=== PATIENT | female | born 1970 | race Caucasian/White ===

== ENCOUNTER 2018-03-16 15:53 | Emergency (ER) | payer OTHER, SELFPAY ==
[2018-03-16] VITALS (8 sets, daily range): BP systolic 146–149; BP diastolic 95–97; PULSE 66–88; RESP 13–16; TEMP 36.8; O2SAT 96–99
--- NOTE | 2018-03-16 16:01 | DI.CT_ITS ---
SYMPTOM/DIAGNOSIS: ALTERED MENTAL STATUS, NON FOCAL, ? SEIZURE NONCONTRAST HEAD CT: No priors. The ventricles and sulci are consistent with the patient's age. No acute intracranial hemorrhage, midline shift or mass effect is identified. The ventricles are intact. The basilar cisterns are patent. There are small fluid levels seen in the maxillary sinuses and sphenoid sinuses bilaterally. This may be seen with acute sinusitis. The mastoid air cells are well pneumatized. The calvarium is intact. IMPRESSION: 1. No acute intracranial process. 2. Small fluid levels seen in the paranasal sinuses. This can be seen with acute sinusitis.
--- NOTE | 2018-03-16 16:07 | W.ED.GENAD ---
Discharge Plan Disposition Patient Disposition: HOME Discharge Details Chief Complaint: AMS/LOC Clinical Impression: Unresponsive episode Primary Care Provider: Candy Felix ED Provider: Frederick Ritchie Home Meds and New Rx's Prescriptions: Continue buspirone 5 mg Tablet 5 mg PO BID RF: 0 escitalopram oxalate [Lexapro] 20 mg Tablet 20 mg PO DAILY AM RF: 0 lorazepam 0.5 mg Tablet 0.5 mg PO RF: 0 diazepam 5 mg Tablet 5 mg PO PRN PRNRF: 0 cyclobenzaprine 10 mg Tablet 10 mg PO TID PRNRF: 0 Discharge Instructions Instructions: Epilepsy (ED) Additional Instructions: Please follow-up with neurology. Call to make an appointment. No driving or operating heavy machinery until cleared to do so by a physician. Please contact your primary care physician to arrange follow-up. Return to the ER for any worsening or new concerning symptoms. Stand Alone Forms: Work Release Referrals: Candy Felix PA [Primary Care Provider] - Iraida Perrin MD [ [facility] STAFF PHYSICIAN] - Medical Decision Making 1617 --patient seen immediately on arrival. Patient is a 47-year-old female here with altered mentation after observed seizure-like activity. No tongue biting or incontinence. Patient seems slow to respond but does not have any focal deficits. When asked if she is feeling anxious and depressed, patient becomes tearful. Suspect patient is currently suffering from anxiety attack. Consider other etiologies include less likely epileptic seizure and now postictal versus central neurologic process. CT reviewed and interpreted by me: Normal sinus rhythm 67 bpm, normal axis, no STEMI, nondiagnostic. Will obtain stat CT head. 17:30 --CT head interpreted by radiology: No acute intracranial abnormality, tiny fluid level in both maxillary sinuses which may be seen with acute sinusitis. Patient reassessed multiple times. She remained stable. She now complains of a sense of heaviness all over her body. I spoke with the patient's who feels patient's symptoms are likely related to her anxiety. I did take a look at her prior medical record listed under a different V number and patient has had 2 episodes of syncope over the past 9 months that were thought to be related to vasovagal episodes. She has had cardiac event monitoring that has been unremarkable. I reviewed and mild hypokalemia noted. Will give oral replacement. 18:30 -- Patient reassessed and significantly improved. Feeling better but still fatigued. Consider seizure. I have instructed patient to not drive or operate any heavy machinery until cleared to do so by her doctor. I recommend that she have outpatient follow-up with neurology this week for further assessment for possible seizure. 19:45 -- Delta trop neg. Patient stable. Improved. HPI General Mode of arrival: EMS. Date/Time Provider Initiated Documentation: 03/16/18 16:01. Limitations to Documentation: altered mental status. Information obtained by: patient and EMS. HPI Narrative: 47-year-old female with history of anxiety presents with EMS with altered mental status. History and review of systems is limited secondary to altered mental status. Per EMS, patient had been complaining of a headache this morning and then just prior to arrival experienced an episode where she locked up and became unresponsive. This episode was witnessed by family who notes concern that she had a seizure - patient was tremoring during episode. No incontinence. Patient does not have a known seizure disorder. She was helped to the floor and did not sustain fall or trauma. EMS notes the patient has been minimally responsive in route to and [facility] with no focal deficits. Patient notes that she has pain all over her body does not localize pain to any one particular area. notes patient was generally not feeling well today and that patient has been stressed at work and had anxiety about calling out from work today. Related Data Home Medications Medication Instructions Recorded Confirmed buspirone 5 mg PO BID 03/16/18 03/16/18 cyclobenzaprine 10 mg PO TID PRN 03/16/18 03/16/18 diazepam 5 mg PO PRN PRN 03/16/18 03/16/18 escitalopram oxalate [Lexapro] 20 mg PO DAILY AM 03/16/18 03/16/18 lorazepam 0.5 mg PO 03/16/18 Allergies Allergy/AdvReac Type Severity Reaction Status Date / Time tetracycline AdvReac Unverified 03/16/18 16:25 General Stated Complaint: AMS/LOC PAULINA: 2 Review of Systems Review of Systems Unobtainable due to mental status [facility] Medical History Anxiety (Chronic) Exam Const General: well developed, acute distress and not in distress Orientation: alert and awake Limitations: altered mental status (minimally responsive to verbal stimuli) HENMT Head: normal to inspection and normocephalic Mouth: moist mucous membranes Throat: posterior oropharynx normal, uvula midline, posterior oropharynx abnormal and no uvular edema Eyes General: appearance normal, both eyes and all related structures Conjunctivae: conjunctivae normal Pupils: PERRL and pupil size bilaterally 4 Neck Neck: trachea midline, supple and no lymphadenopathy noted Resp Effort & Inspection: normal respiratory effort, cough, not labored and no respiratory distress Auscultation: clear to auscultation bilaterally, no rales, no rhonchi and no wheezes Cardio Jugular venous pressure: no JVD Rate: regular rate Rhythm: regular rhythm Heart Sounds: S1 normal, S2 normal, no gallops, no murmurs and no rubs GI Palpation: soft and nontender Skin General skin exam: no rashes or lesions noted and dry skin Other: warm Neuro General: alert, awake and moves all extremities Cranial Nerves: PERRL Speech: other (clear speech, slow to respond) Extrem General: clubbing, cyanosis or edema noted Psych Appearance: grossly normal Speech and Movement: delayed speech Affect: anxious affect Course Vital Signs Temperature 36.8 C 03/16/18 15:57 Pulse 80 03/16/18 15:57 Respiratory Rate 14 03/16/18 15:57 Blood Pressure 149/95 H 03/16/18 15:57 Pulse Oximetry 99 03/16/18 15:57 Temperature 36.8 C 03/16/18 15:57 Pulse 80 03/16/18 15:57 Respiratory Rate 14 03/16/18 15:57 Blood Pressure 149/95 H 03/16/18 15:57 Pulse Oximetry 99 03/16/18 15:57 Oxygen Delivery Method Room Air 03/16/18 15:57 Oxygen Flow Rate 0 03/16/18 15:57
[2018-03-16 16:13] LABS: Abs Immature Grans 0.01 k/cumm (0.0-0.09); Absolute Basophil Count 0.03 k/cumm (0.0-0.2); Absolute Eosinophil Count 0.19 k/cumm (0.0-0.7); Absolute Lymphocyte Count 4.25 k/cumm (1.2-3.4); Absolute Neutrophil Count 4.53 k/cumm (1.2-6.7); Basophils % 0.3; HCT 40.8 % (36.0-46.0); HGB 13.6 g/dL (12.0-15.5); Immature Grans % 0.1; Lymphocytes % 43.8; Mean Corp. HGB Concentration 33.3 g/dL (32.0-36.0); Mean Corpuscular Hemoglobin 30.8 pg (27.0-33.0); Mean Corpuscular Volume 92.5 fL (80-95); Mean Platelet Volume 9.4 fL (8.0-11.0); Monocytes % 7.2; Neutrophils % 46.6; Platelet Count 330 x1000/uL (130-400); RBC 4.41 m/cumm (4.00-5.20); RBC Distribution Width 13.1 % (11.7-14.6); White Blood Cell Count 9.71 k/cumm (4.4-10.8)
--- NOTE | 2018-03-16 16:13 | ED.GENADUL_ITS ---
Discharge Plan Disposition Patient Disposition: HOME Discharge Details Chief Complaint: AMS/LOC Clinical Impression: Unresponsive episode Primary Care Provider: Candy Felix ED Provider: Frederick Ritchie Home Meds and New Rx's Prescriptions: Continue buspirone 5 mg Tablet 5 mg PO BID RF: 0 escitalopram oxalate [Lexapro] 20 mg Tablet 20 mg PO DAILY AM RF: 0 lorazepam 0.5 mg Tablet 0.5 mg PO RF: 0 diazepam 5 mg Tablet 5 mg PO PRN PRNRF: 0 cyclobenzaprine 10 mg Tablet 10 mg PO TID PRNRF: 0 Discharge Instructions Instructions: Epilepsy (ED) Additional Instructions: Please follow-up with neurology. Call to make an appointment. No driving or operating heavy machinery until cleared to do so by a physician. Please contact your primary care physician to arrange follow-up. Return to the ER for any worsening or new concerning symptoms. Stand Alone Forms: Work Release Referrals: Candy Felix PA [Primary Care Provider] - Iraida Perrin MD [ [facility] STAFF PHYSICIAN] - Medical Decision Making 1617 --patient seen immediately on arrival. Patient is a 47-year-old female here with altered mentation after observed seizure-like activity. No tongue biting or incontinence. Patient seems slow to respond but does not have any focal deficits. When asked if she is feeling anxious and depressed, patient becomes tearful. Suspect patient is currently suffering from anxiety attack. Consider other etiologies include less likely epileptic seizure and now postictal versus central neurologic process. CT reviewed and interpreted by me: Normal sinus rhythm 67 bpm, normal axis, no STEMI, nondiagnostic. Will obtain stat CT head. 17:30 --CT head interpreted by radiology: No acute intracranial abnormality, tiny fluid level in both maxillary sinuses which may be seen with acute sinusitis. Patient reassessed multiple times. She remained stable. She now complains of a sense of heaviness all over her body. I spoke with the patient's who feels patient's symptoms are likely related to her anxiety. I did take a look at her prior medical record listed under a different V number and patient has had 2 episodes of syncope over the past 9 months that were thought to be related to vasovagal episodes. She has had cardiac event monitoring that has been unremarkable. I reviewed and mild hypokalemia noted. Will give oral replacement. 18:30 -- Patient reassessed and significantly improved. Feeling better but still fatigued. Consider seizure. I have instructed patient to not drive or operate any heavy machinery until cleared to do so by her doctor. I recommend that she have outpatient follow-up with neurology this week for further assessment for possible seizure. 19:45 -- Delta trop neg. Patient stable. Improved. HPI General Mode of arrival: EMS . Date/Time Provider Initiated Documentation: 03/16/18 16:01 . Limitations to Documentation: altered mental status . Information obtained by: patient and EMS . HPI Narrative: 47-year-old female with history of anxiety presents with EMS with altered mental status. History and review of systems is limited secondary to altered mental status. Per EMS, patient had been complaining of a headache this morning and then just prior to arrival experienced an episode where she locked up and became unresponsive. This episode was witnessed by family who notes concern that she had a seizure - patient was tremoring during episode. No incontinence. Patient does not have a known seizure disorder. She was helped to the floor and did not sustain fall or trauma. EMS notes the patient has been minimally responsive in route to and [facility] with no focal deficits. Patient notes that she has pain all over her body does not localize pain to any one particular area. notes patient was generally not feeling well today and that patient has been stressed at work and had anxiety about calling out from work today. Related Data Home Medications Medication Instructions Recorded Confirmed buspirone 5 mg PO BID 03/16/18 03/16/18 cyclobenzaprine 10 mg PO TID PRN 03/16/18 03/16/18 diazepam 5 mg PO PRN PRN 03/16/18 03/16/18 escitalopram oxalate [Lexapro] 20 mg PO DAILY AM 03/16/18 03/16/18 lorazepam 0.5 mg PO 03/16/18 Allergies Allergy/AdvReac Type Severity Reaction Status Date / Time tetracycline AdvReac Unverified 03/16/18 16:25 General Stated Complaint: AMS/LOC PAULINA: 2 Review of Systems Review of Systems Unobtainable due to mental status [facility] Medical History Anxiety (Chronic) Exam Const General: well developed, acute distress and not in distress Orientation: alert and awake Limitations: altered mental status (minimally responsive to verbal stimuli) HENMT Head: normal to inspection and normocephalic Mouth: moist mucous membranes Throat: posterior oropharynx normal, uvula midline, posterior oropharynx abnormal and no uvular edema Eyes General: appearance normal, both eyes and all related structures Conjunctivae: conjunctivae normal Pupils: PERRL and pupil size bilaterally 4 Neck Neck: trachea midline, supple and no lymphadenopathy noted Resp Effort & Inspection: normal respiratory effort, cough, not labored and no respiratory distress Auscultation: clear to auscultation bilaterally, no rales, no rhonchi and no wheezes Cardio Jugular venous pressure: no JVD Rate: regular rate Rhythm: regular rhythm Heart Sounds: S1 normal, S2 normal, no gallops, no murmurs and no rubs GI Palpation: soft and nontender Skin General skin exam: no rashes or lesions noted and dry skin Other: warm Neuro General: alert, awake and moves all extremities Cranial Nerves: PERRL Speech: other (clear speech, slow to respond) Extrem General: clubbing, cyanosis or edema noted Psych Appearance: grossly normal Speech and Movement: delayed speech Affect: anxious affect Course Vital Signs Temperature 36.8 C 03/16/18 15:57 Pulse 80 03/16/18 15:57 Respiratory Rate 14 03/16/18 15:57 Blood Pressure 149/95 H 03/16/18 15:57 Pulse Oximetry 99 03/16/18 15:57 Temperature 36.8 C 03/16/18 15:57 Pulse 80 03/16/18 15:57 Respiratory Rate 14 03/16/18 15:57 Blood Pressure 149/95 H 03/16/18 15:57 Pulse Oximetry 99 03/16/18 15:57 Oxygen Delivery Method Room Air 03/16/18 15:57 Oxygen Flow Rate 0 03/16/18 15:57
[2018-03-16 16:33] LABS: ALT 19 U/L (12-78); AST 17 U/L (15-37); Albumin 3.8 g/dL (3.4-5.0); Alkaline Phosphatase 88 U/L (46-116); Bilirubin, Direct 0.06 mg/dL (0.00-0.20); Bilirubin, Total 0.3 mg/dL (0.2-1.0); Total Protein 7.9 g/dL (6.4-8.2)
[2018-03-16 16:35] LABS: ALT 19 U/L (12-78); AST 16 U/L (15-37); Albumin 3.8 g/dL (3.4-5.0); Alkaline Phosphatase 92 U/L (46-116); Anion Gap 9.5 mmol/L (3-11); BUN 14 mg/dL (7-18); Bilirubin, Total 0.3 mg/dL (0.2-1.0); CO2 26.5 mmol/L (21.0-32.0); CREATININE 0.79 mg/dL (0.55-1.02); Chloride 105 mmol/L (98-107); Glucose 95 mg/dL (70-100); Potassium 3.2 mmol/L (3.5-5.1); Sodium 141 mmol/L (136-145); Total Protein 7.9 g/dL (6.4-8.2); Troponin I 0.02 ng/mL (0.00-0.06)
[2018-03-16 16:41] LABS: Tricyclic Antidepressants Negative (Negative)
--- NOTE | 2018-03-16 16:48 | DI.VRAD_ITS ---
EXAM: CT Head Without Intravenous Contrast CLINICAL HISTORY: 47 years old, female; Signs and symptoms; Other: Altered, non-focal, question seizure TECHNIQUE: Axial computed tomography images of the head/brain without intravenous contrast. All CT scans at this facility use at least one of these dose optimization techniques: automated exposure control; mA and/or kV adjustment per patient size (includes targeted exams where dose is matched to clinical indication); or iterative reconstruction. Coronal and sagittal reformatted images were created and reviewed. COMPARISON: No relevant prior studies available. FINDINGS: Brain: Unremarkable. No hemorrhage. No significant white matter disease. No edema. Ventricles: Unremarkable. No ventriculomegaly. Bones/joints: Unremarkable. No acute fracture. Soft tissues: Unremarkable. Sinuses: Tiny fluid levels within both maxillary sinuses. Mastoid air cells: Unremarkable as visualized. No mastoid effusion. IMPRESSION: 1. No intracranial abnormality. 2. Tiny fluid levels within both maxillary sinuses which may be seen with acute sinusitis. Dictated and Authenticated by: Fadi Rosario MD. Ordering:ROSANNE ACKERMAN MD
[2018-03-16 16:49] LABS: *AMPHETAMINES SCREEN URINE Negative (Negative); *BARBITURATES SCREEN URINE Negative (Negative); *BENZODIAZEPINES SCREEN URINE Negative (Negative); Cannabinoids THC Negative (Negative); Cocaine Screen,Urine Negative (Negative); METHADONE URINE SCREEN Negative (Negative); OPIATES URINE SCREEN Negative (Negative)
[2018-03-16 19:34] LABS: Troponin I < 0.02 ng/mL (0.00-0.06)
--- NOTE | 2018-03-17 08:54 | PDOC.ERCMPRO ---
Care Management Progress Note 03/17/18-Pt seen on 03/16/[address] Rosie paul for altered mental status. Family feels they witnessed a seizure. F/U Request WILLIAM faxed to Neurology.
== END 2018-03-16 20:09 | disposition home or self-care (01) ==
PROVIDERS: Emergency Provider Student in an Organized Health Care Education/Training Program; PCP Physician Assistant Medical
DX: R41.82 Altered mental status, unspecified (principal); E87.6 Hypokalemia; R51 Headache; F41.9 Anxiety disorder, unspecified
CPT/HCPCS: 36415; 51701; 80048; 80053; 80076; 80307; 93005; 99285; 70450; 83735; 84443; 84484; 85025; 85610; 93010

== ENCOUNTER 2018-04-08 01:50 | Outpatient (CLI) | payer OTHER, SELFPAY ==
--- NOTE | 2018-04-08 16:10 | PDOC.EEG ---
EEG: [facility] Department of Neurology EEG REPORT Date of Recordin04/08/18 Interpreting Physician: Dr. Iraida Perrin PCP/Referring Provider: Doyle Felix NP Reason for study: Ms. Posadas is a 47 year-old woman with a recent spell of unresponsiveness and posturing. Current Medications: ibuprofen 600 mg PO Q6H PRN #20 tab 03/27/17 cyclobenzaprine 10 mg PO TID PRN 03/16/18 diazepam 5 mg PO PRN PRN 03/16/18 lorazepam 0.5 mg PO 03/16/18 buspirone 5 mg tablet 5 mg PO BID 04/02/18 buspirone 7.5 mg tablet 7.5 mg PO TID tab-cap 04/02/18 escitalopram 20 mg tablet 30 mg PO DAILY AM tab 04/02/18 METHODS: A 21 channel digitized electroencephalogram was performed in the [facility] Clinical Neurophysiology Laboratory. The 10/20 international system of electrode placement was used and bipolar and referential electrode montages were recorded. In addition to EEG the patient was monitored for EKG and lateral/vertical eye movements. Activation procedures of photic stimulation and hyperventilation were perfomed if applicable. Video was used during activation procedures and during events where applicable. The duration of the recording was 30 minutes. DESCRIPTION OF EEG: The patient was noted to be awake, drowsy, and asleep during the recording. During maximal wakefulness a 10-Hz posterior background rhythm was present which was well-modulated, symmetrical, reactive to eye opening, and of moderate voltage. With eye opening the background activity changed to a low voltage mixture of alpha, beta, and occasional theta range frequencies. Faster frequencies were present in the bilateral anterior head regions. There was a normal anterior-posterior voltage gradient. During drowsiness, there was attenuation of the posterior dominant background rhythm and vertex waves. Stage II sleep was present with symmetrical sleep spindles, K-complexes, and vertex waves. Activating Procedures: Photic stimulation was performed which produced a symmetrical posterior driving response at various flash frequencies. Hyperventilation was performed with moderate effort and produced no physiological slowing of the background. EKG: EKG revealed normal sinus rhythm. INTERPRETATION: This EEG is normal during the awake and sleep states as well as during photic stimulation and hyperventilation. PRIOR EEG: none CLINICAL CORRELATION: No focal regions of cerebral dysfunction or epileptiform activity was present. Epilepsy remains a clinical diagnosis and a normal EEG does not rule out epilepsy. Clinical correlation is advised. Iraida Perrin MD cc: Doyle Felix NP
== END 2018-04-08 02:10 ==
PROVIDERS: PCP Physician Assistant Medical; Visit Provider Psychiatry & Neurology Neurology
DX: R56.9 Unspecified convulsions (principal); R55 Syncope and collapse; R46.89 Other symptoms and signs involving appearance and behavior; R68.89 Other general symptoms and signs
CPT/HCPCS: 95819

== ENCOUNTER 2018-08-22 09:36 | Emergency (ER) | payer OTHER, SELFPAY ==
[2018-08-22 09:45] VITALS: BP 170/105; PULSE 84; RESP 20; TEMP 37; O2SAT 96
[2018-08-22 09:55] VITALS: RESP 20
--- NOTE | 2018-08-22 10:24 | W.ED.GENAD ---
Discharge Plan Disposition Patient Disposition: HOME Condition: Stable Discharge Details Chief Complaint: Anxiety Clinical Impression: Diarrhea, Anxiety Primary Care Provider: Candy Felix ED Provider: Luca Padgett Home Meds and New Rx's Prescriptions: Continued ibuprofen 600 MG tablet 600 mg PO Q6H PRN (Reason: Pain) Qty: 20 RF: 0 lorazepam 0.5 mg Tablet 0.5 mg PO PRN PRNRF: 0 diazepam 5 mg Tablet 5 mg PO PRN PRNRF: 0 cyclobenzaprine 10 mg Tablet 10 mg PO TID PRNRF: 0 escitalopram oxalate [Lexapro] 20 mg tablet 30 mg PO DAILY AM RF: 0 buspirone 5 mg tablet 5 mg PO BID RF: 0 bupropion HCl [Wellbutrin XL] 300 mg Tablet Extended Release 24 Hr 300 mg PO BID RF: 0 Discharge Instructions Instructions: Acute Diarrhea (ED), Anxiety (ED) Additional Instructions: Please stay well-hydrated and slowly advance your diet as tolerated. Get plenty of rest during illness and return immediately to the emergency department for any further concerns, new or worsening symptoms, fever chills, abdominal pain, nausea vomiting. Follow-up with your primary care provider and counseling services as needed. Stand Alone Forms: Work Release Referrals: Candy Felix PA [Primary Care Provider] - (As needed for reassessment) Medical Decision Making Patient presenting the emergency department for chief complaint of anxiety attack. 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 Patient states that she deals with panic anxiety attacks on a normal basis and does see a counselor for these and is on medication. Patient denies any abdominal pain, fever chills, nausea or vomiting and states only one episode of diarrhea today. Physical exam shows a benign abdomen with hypoactive bowel sounds and otherwise normal examination. Patient is very tearful and anxious about work situation but she denies any homicidal suicidal ideations, states that she [place] has counseling services in place, and states she is mostly concerned about missing work. Given benign abdominal exam no homicidal or suicidal thoughts and otherwise well at appearance without tachycardia, without signs of dehydration, patient not hypotensive patient was offered lab work which she refused at this point. I do feel that this is okay as patient states that she is mostly here her anxiety. Patient was encouraged to return for any new or worsening symptoms. Return precautions thoroughly discussed. Patient encouraged to continue to take her psychiatric medications along with [id number] antidiarrheals as needed. After discussion of diagnosis and plan of care patient has no further needs, questions, or concerns and states clear understanding to return to the emergency department for any worsening symptoms. HPI General Mode of arrival: ambulatory. Date/Time Provider Initiated Documentation: 08/22/18 10:02. Limitations to Documentation: no limitations. Information obtained by: patient, family and RN notes reviewed. History of Present Illness 47 year old F presents to the emergency department with the chief complaint of Diarrhea, anxiety attack., Quality is described as other (Denies pain), Patient started experiencing this day(s) (3) and it has been intermittent. No exacerbating factors reported . Patient did receive the following treatments prior to arrival, none Related Data Home Medications Medication Instructions Recorded Confirmed ibuprofen 600 mg PO Q6H PRN #20 tab 03/27/17 08/22/18 cyclobenzaprine 10 mg PO TID PRN 03/16/18 08/22/18 diazepam 5 mg PO PRN PRN 03/16/18 08/22/18 lorazepam 0.5 mg PO PRN PRN 03/16/18 08/22/18 buspirone 5 mg tablet 5 mg PO BID 04/02/18 08/22/18 escitalopram 20 mg tablet 30 mg PO DAILY AM tab 04/02/18 08/22/18 bupropion HCl [Wellbutrin XL] 300 mg PO BID 08/22/18 08/22/18 Previous Rx's Medication Instructions Recorded ibuprofen 600 mg PO Q6H PRN #20 tab 03/27/17 Allergies Allergy/AdvReac Type Severity Reaction Status Date / Time Penicillins Allergy Intermediate mouth sores Unverified 08/22/18 09:52 tetracycline [Tetracycline] Allergy Mild Skin Rash Unverified 08/22/18 09:52 codeine [Codeine] AdvReac Intermediate Nausea Unverified 08/22/18 09:52 zolpidem tartrate AdvReac Intermediate Mood Unverified 08/22/18 09:52 [From Ambien] General Stated Complaint: Anxiety PAULINA: 3 Review of Systems Constitutional Denies chills, Denies fever(s) and Denies poor appetite Cardiovascular Denies chest pain and Denies dyspnea Respiratory Denies cough and Denies dyspnea Gastrointestinal Reports as per HPI, Denies abdominal pain, Denies melena, Denies change in bowel habits, Denies constipation, Reports diarrhea, Denies nausea and Denies vomiting Genitourinary Denies hematuria, Denies urinary incontinence, Denies urinary hesitancy and Denies urinary urgency Integumentary/Breasts Denies rash Psychiatric Reports anxiety, Reports panic attacks, Denies homicidal ideation and Denies suicidal ideation [facility] Medical History Adrenal nodule (Chronic) Sleep apnea (Chronic 12/24/16) 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) Heart palpitations (Chronic 09/20/16) Depression with anxiety (Chronic 05/15/17) Cerebral palsy, hemiplegic (Chronic 10/01/16) Carpal tunnel syndrome of left wrist (Chronic 10/01/16) BMI 40.0-44.9, adult (Chronic 09/20/16) Abnormal uterine bleeding (Chronic 09/20/16) Ventral hernia (Chronic) Anxiety (Chronic) Anxiety (Resolved 09/20/16) Anxiety and depression (Resolved) BMI 40.0-44.9, adult (Resolved) Cerebral palsy, hemiplegic (Resolved) Heart palpitations (Resolved) Hiatal hernia (Resolved) Surgical History Rotator cuff arthropathy of left shoulder (Chronic) Cholecystectomy Dilation and curettage Endometrial Ablation (~2005) Ligation of fallopian tube Vaginal hysterectomy (12/13/16) Family History Mother Diabetes Asthma Social History number of children: 2 current occupational status: employed current occupation: [employer] Smoking and Tabacco status: Never alcohol intake: current alcohol intake frequency: a few times a month Exam Const General: cooperative Orientation: alert, awake and oriented x3 Resp Effort & Inspection: normal respiratory effort and able to speak in complete sentences Auscultation: clear to auscultation bilaterally Cardio Rate: regular rate Rhythm: regular rhythm Heart Sounds: S1 normal and S2 normal GI Palpation: soft, no hepatosplenomegaly, not firm, no guarding, no masses, no pulsatile masses, not rigid, no splenomegaly and nontender Auscultation: hypoactive bowel sounds Back/Spine/Pelvis Back: no CVA tenderness Neuro General: alert, awake, oriented x3, gait normal and moves all extremities Psych Mood: anxious mood Affect: other (tearfull) Attitude: cooperative Thought Process: normal Thought Content: normal, no homicidality and suicidality Course Vital Signs Temperature 37 C 08/22/18 09:45 Pulse 84 08/22/18 09:45 Respiratory Rate 20 08/22/18 09:45 Blood Pressure 170/105 H 08/22/18 09:45 Pulse Oximetry 96 08/22/18 09:45 Temperature 37 C 08/22/18 09:45 Temperature Source Temporal Artery Scan 08/22/18 09:45 Pulse 84 08/22/18 09:45 Respiratory Rate 20 08/22/18 09:55 Respiratory Effort Non-Labored 08/22/18 09:55 Respiratory Depth Normal 08/22/18 09:55 Respiratory Pattern Normal 08/22/18 09:55 Blood Pressure 170/105 H 08/22/18 09:45 Blood Pressure Position Sitting 08/22/18 09:45 Pulse Oximetry 96 08/22/18 09:45 Pain Level 4 08/22/18 09:45
--- NOTE | 2018-08-22 10:32 | ED.GENADUL_ITS ---
Discharge Plan Disposition Patient Disposition: HOME Condition: Stable Discharge Details Chief Complaint: Anxiety Clinical Impression: Diarrhea, Anxiety Primary Care Provider: Candy Felix ED Provider: Luca Padgett Home Meds and New Rx's Prescriptions: Continued ibuprofen 600 MG tablet 600 mg PO Q6H PRN (Reason: Pain) Qty: 20 RF: 0 lorazepam 0.5 mg Tablet 0.5 mg PO PRN PRNRF: 0 diazepam 5 mg Tablet 5 mg PO PRN PRNRF: 0 cyclobenzaprine 10 mg Tablet 10 mg PO TID PRNRF: 0 escitalopram oxalate [Lexapro] 20 mg tablet 30 mg PO DAILY AM RF: 0 buspirone 5 mg tablet 5 mg PO BID RF: 0 bupropion HCl [Wellbutrin XL] 300 mg Tablet Extended Release 24 Hr 300 mg PO BID RF: 0 Discharge Instructions Instructions: Acute Diarrhea (ED), Anxiety (ED) Additional Instructions: Please stay well-hydrated and slowly advance your diet as tolerated. Get plenty of rest during illness and return immediately to the emergency department for any further concerns, new or worsening symptoms, fever chills, abdominal pain, nausea vomiting. Follow-up with your primary care provider and counseling services as needed. Stand Alone Forms: Work Release Referrals: Candy Felix PA [Primary Care Provider] - (As needed for reassessment) Medical Decision Making Patient presenting the emergency department for chief complaint of anxiety attack. 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 Patient states that she deals with panic anxiety attacks on a normal basis and does see a counselor for these and is on medication. Patient denies any abdominal pain, fever chills, nausea or vomiting and states only one episode of diarrhea today. Physical exam shows a benign abdomen with hypoactive bowel sounds and otherwise normal examination. Patient is very tearful and anxious about work situation but she denies any homicidal suicidal ideations, states that she [place] has counseling services in place, and states she is mostly concerned about missing work. Given benign abdominal exam no homicidal or suicidal thoughts and otherwise well at appearance without tachycardia, without signs of dehydration, patient not hypotensive patient was offered lab work which she refused at this point. I do feel that this is okay as patient states that she is mostly here her anxiety. Patient was encouraged to return for any new or worsening symptoms. Return precautions thoroughly discussed. Patient encouraged to continue to take her psychiatric medications along with [id number] antidiarrheals as needed. After discussion of diagnosis and plan of care patient has no further needs, questions, or concerns and states clear understanding to return to the emergency department for any worsening symptoms. HPI General Mode of arrival: ambulatory . Date/Time Provider Initiated Documentation: 08/22/18 10:02 . Limitations to Documentation: no limitations . Information obtained by: patient, family and RN notes reviewed . History of Present Illness 47 year old F presents to the emergency department with the chief complaint of Diarrhea, anxiety attack., Quality is described as other (Denies pain), Patient started experiencing this day(s) (3) and it has been intermittent. No exacerbating factors reported . Patient did receive the following treatments prior to arrival, none Related Data Home Medications Medication Instructions Recorded Confirmed ibuprofen 600 mg PO Q6H PRN #20 tab 03/27/17 08/22/18 cyclobenzaprine 10 mg PO TID PRN 03/16/18 08/22/18 diazepam 5 mg PO PRN PRN 03/16/18 08/22/18 lorazepam 0.5 mg PO PRN PRN 03/16/18 08/22/18 buspirone 5 mg tablet 5 mg PO BID 04/02/18 08/22/18 escitalopram 20 mg tablet 30 mg PO DAILY AM tab 04/02/18 08/22/18 bupropion HCl [Wellbutrin XL] 300 mg PO BID 08/22/18 08/22/18 Previous Rx's Medication Instructions Recorded ibuprofen 600 mg PO Q6H PRN #20 tab 03/27/17 Allergies Allergy/AdvReac Type Severity Reaction Status Date / Time Penicillins Allergy Intermediate mouth sores Unverified 08/22/18 09:52 tetracycline [Tetracycline] Allergy Mild Skin Rash Unverified 08/22/18 09:52 codeine [Codeine] AdvReac Intermediate Nausea Unverified 08/22/18 09:52 zolpidem tartrate AdvReac Intermediate Mood Unverified 08/22/18 09:52 [From Ambien] General Stated Complaint: Anxiety PAULINA: 3 Review of Systems Constitutional Denies chills, Denies fever(s) and Denies poor appetite Cardiovascular Denies chest pain and Denies dyspnea Respiratory Denies cough and Denies dyspnea Gastrointestinal Reports as per HPI, Denies abdominal pain, Denies melena, Denies change in bowel habits, Denies constipation, Reports diarrhea, Denies nausea and Denies vomiting Genitourinary Denies hematuria, Denies urinary incontinence, Denies urinary hesitancy and Denies urinary urgency Integumentary/Breasts Denies rash Psychiatric Reports anxiety, Reports panic attacks, Denies homicidal ideation and Denies suicidal ideation [facility] Medical History Adrenal nodule (Chronic) Sleep apnea (Chronic 12/24/16) 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) Heart palpitations (Chronic 09/20/16) Depression with anxiety (Chronic 05/15/17) Cerebral palsy, hemiplegic (Chronic 10/01/16) Carpal tunnel syndrome of left wrist (Chronic 10/01/16) BMI 40.0-44.9, adult (Chronic 09/20/16) Abnormal uterine bleeding (Chronic 09/20/16) Ventral hernia (Chronic) Anxiety (Chronic) Anxiety (Resolved 09/20/16) Anxiety and depression (Resolved) BMI 40.0-44.9, adult (Resolved) Cerebral palsy, hemiplegic (Resolved) Heart palpitations (Resolved) Hiatal hernia (Resolved) Surgical History Rotator cuff arthropathy of left shoulder (Chronic) Cholecystectomy Dilation and curettage Endometrial Ablation (~2005) Ligation of fallopian tube Vaginal hysterectomy (12/13/16) Family History Mother Diabetes Asthma Social History number of children: 2 current occupational status: employed current occupation: [employer] Smoking and Tabacco status: Never alcohol intake: current alcohol intake frequency: a few times a month Exam Const General: cooperative Orientation: alert, awake and oriented x3 Resp Effort & Inspection: normal respiratory effort and able to speak in complete sentences Auscultation: clear to auscultation bilaterally Cardio Rate: regular rate Rhythm: regular rhythm Heart Sounds: S1 normal and S2 normal GI Palpation: soft, no hepatosplenomegaly, not firm, no guarding, no masses, no pulsatile masses, not rigid, no splenomegaly and nontender Auscultation: hypoactive bowel sounds Back/Spine/Pelvis Back: no CVA tenderness Neuro General: alert, awake, oriented x3, gait normal and moves all extremities Psych Mood: anxious mood Affect: other (tearfull) Attitude: cooperative Thought Process: normal Thought Content: normal, no homicidality and suicidality Course Vital Signs Temperature 37 C 08/22/18 09:45 Pulse 84 08/22/18 09:45 Respiratory Rate 20 08/22/18 09:45 Blood Pressure 170/105 H 08/22/18 09:45 Pulse Oximetry 96 08/22/18 09:45 Temperature 37 C 08/22/18 09:45 Temperature Source Temporal Artery Scan 08/22/18 09:45 Pulse 84 08/22/18 09:45 Respiratory Rate 20 08/22/18 09:55 Respiratory Effort Non-Labored 08/22/18 09:55 Respiratory Depth Normal 08/22/18 09:55 Respiratory Pattern Normal 08/22/18 09:55 Blood Pressure 170/105 H 08/22/18 09:45 Blood Pressure Position Sitting 08/22/18 09:45 Pulse Oximetry 96 08/22/18 09:45 Pain Level 4 08/22/18 09:45
== END 2018-08-22 10:41 | disposition home or self-care (01) ==
PROVIDERS: Emergency Provider Nurse Practitioner Family; PCP Physician Assistant Medical
DX: R19.7 Diarrhea, unspecified (principal); F41.9 Anxiety disorder, unspecified
CPT/HCPCS: 99282

== ENCOUNTER 2018-09-03 06:19 | Emergency (ER) | payer OTHER, SELFPAY ==
[2018-09-03 06:32] VITALS: BP 161/106; PULSE 84; RESP 20; TEMP 36.3
--- NOTE | 2018-09-03 06:39 | ED.GENADUL_ITS ---
Discharge Plan Disposition Patient Disposition: HOME Condition: Stable Discharge Details Chief Complaint: Headache Clinical Impression: Migraine Primary Care Provider: Candy Felix ED Provider: Brad Amaro Home Meds and New Rx's Prescriptions: No Action ibuprofen 600 MG tablet 600 mg PO Q6H PRN (Reason: Pain) Qty: 20 RF: 0 lorazepam 0.5 mg Tablet 0.5 mg PO PRN PRNRF: 0 diazepam 5 mg Tablet 5 mg PO PRN PRNRF: 0 escitalopram oxalate [Lexapro] 20 mg tablet 30 mg PO DAILY AM RF: 0 buspirone 5 mg tablet 5 mg PO BID RF: 0 bupropion HCl [Wellbutrin XL] 300 mg Tablet Extended Release 24 Hr 300 mg PO BID RF: 0 Discharge Instructions Instructions: Migraine Headache (ED) Medical Decision Making 47 yo female with hx of migraines comes in with head pain simiilar to her prior migraines. She states saturday she saw her pcp for migraines and was given im toradol and felt better. THis morning the pain slowly worsened and so came here. States positive photohpobia and pain throughout the head similar to her prior migraines and not the worst of her life. 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 CN II-xII intact. No findings to suggest caverous sinus thrombis or cereral venous thrombosis. Given not worst of her life and slowly worsened doubt sah. Will tx with toradol and zofran and reassess. pt is feeling much better at this time. She feels well enough to go home, advised f/u with pcp and return precautions given Differential Diagnosis migraine, tension headache HPI General Mode of arrival: ambulatory . Date/Time Provider Initiated Documentation: 09/03/18 06:22 . Limitations to Documentation: no limitations . Information obtained by: patient . History of Present Illness 47 year old F presents to the emergency department with the chief complaint of head pain, described as severe, with intensity rated at 8. Quality is described as aching, and is localized to the head. Patient reports no radiation. Patient started experiencing this hour(s) (3) and it has been constant. No relieving factors improve symptom(s), No exacerbating factors reported . Patient notes no other symptoms.. Patient did receive the following treatments prior to arrival, none Related Data Home Medications Medication Instructions Recorded Confirmed ibuprofen 600 mg PO Q6H PRN #20 tab 03/27/17 09/03/18 diazepam 5 mg PO PRN PRN 03/16/18 09/03/18 lorazepam 0.5 mg PO PRN PRN 03/16/18 09/03/18 buspirone 5 mg tablet 5 mg PO BID 04/02/18 09/03/18 escitalopram 20 mg tablet 30 mg PO DAILY AM tab 04/02/18 09/03/18 bupropion HCl [Wellbutrin XL] 300 mg PO BID 08/22/18 09/03/18 Previous Rx's Medication Instructions Recorded ibuprofen 600 mg PO Q6H PRN #20 tab 03/27/17 Allergies Allergy/AdvReac Type Severity Reaction Status Date / Time Penicillins Allergy Intermediate mouth sores Unverified 09/03/18 06:34 tetracycline [Tetracycline] Allergy Mild Skin Rash Unverified 09/03/18 06:34 codeine [Codeine] AdvReac Intermediate Nausea Unverified 09/03/18 06:34 zolpidem tartrate AdvReac Intermediate Mood Unverified 09/03/18 06:34 [From [place]] General Stated Complaint: Headache PAULINA: 2 Review of Systems Review of Systems All systems reviewed & are unremarkable except as noted in HPI and below Constitutional Denies chills, Denies fever(s) and Denies weakness ENT Denies change in voice Cardiovascular Denies chest pain and Denies dyspnea Respiratory Denies cough and Denies dyspnea Gastrointestinal Denies abdominal pain Genitourinary Denies dysuria Musculoskeletal Denies joint swelling Integumentary/Breasts Denies rash Neurologic Denies weakness [facility] Medical History Adrenal nodule (Chronic) Sleep apnea (Chronic 12/24/16) 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) Heart palpitations (Chronic 09/20/16) Depression with anxiety (Chronic 05/15/17) Cerebral palsy, hemiplegic (Chronic 10/01/16) Carpal tunnel syndrome of left wrist (Chronic 10/01/16) BMI 40.0-44.9, adult (Chronic 09/20/16) Abnormal uterine bleeding (Chronic 09/20/16) Ventral hernia (Chronic) Anxiety (Chronic) Anxiety (Resolved 09/20/16) Anxiety and depression (Resolved) BMI 40.0-44.9, adult (Resolved) Cerebral palsy, hemiplegic (Resolved) Heart palpitations (Resolved) Hiatal hernia (Resolved) Surgical History Rotator cuff arthropathy of left shoulder (Chronic) Cholecystectomy Dilation and curettage Endometrial Ablation (~2005) Ligation of fallopian tube Vaginal hysterectomy (12/13/16) Family History Mother Diabetes Asthma Social History number of children: 2 current occupational status: employed current occupation: [employer] Smoking and Tabacco status: Never alcohol intake: current alcohol intake frequency: a few times a month Exam Const General: no acute distress Orientation: alert HENMT Head: normal to inspection Ears: external ears normal General nose exam: external nose normal Mouth: moist mucous membranes Eyes General: appearance normal, both eyes and all related structures Neck Neck: normal visual inspection Resp Effort & Inspection: normal respiratory effort and able to speak in complete sentences Cardio Rate: regular rate Skin General skin exam: no rashes or lesions noted Neuro General: alert and oriented x3 Extrem General: normal to inspection Psych Mental Status: mental status grossly normal Course Vital Signs Temperature 36.3 C L 09/03/18 06:32 Pulse 84 09/03/18 06:32 Respiratory Rate 20 09/03/18 06:32 Blood Pressure 161/106 H 09/03/18 06:32 Temperature 36.3 C L 09/03/18 06:32 Temperature Source Skin 09/03/18 06:32 Pulse 84 09/03/18 06:32 Respiratory Rate 20 09/03/18 06:32 Blood Pressure 161/106 H 09/03/18 06:32 Blood Pressure Position Sitting 09/03/18 06:32 Pain Level 6 09/03/18 06:32
[2018-09-03] MEDS: Ketorolac 30 MG/ML VIAL IM (06:49)
[2018-09-03] MEDS: Ondansetron O.D.T. 4 MG TABEF PO (06:50)
[2018-09-03 07:50] VITALS: BP 120/59; PULSE 85; RESP 16; TEMP 36.3; O2SAT 96
== END 2018-09-03 07:53 | disposition home or self-care (01) ==
PROVIDERS: Emergency Provider Emergency Medicine; PCP Physician Assistant Medical
DX: G43.909 Migraine, unspecified, not intractable, without status migrainosus (principal)
CPT/HCPCS: 99283; J1885

== ENCOUNTER 2018-09-16 11:11 | Emergency (ER) | payer OTHER, SELFPAY ==
[2018-09-16 11:17] VITALS: BP 117/86; PULSE 86; RESP 18; TEMP 36.5; O2SAT 97
--- NOTE | 2018-09-16 11:48 | ED.GENADUL_ITS ---
Discharge Plan Disposition Patient Disposition: HOME Condition: Good Discharge Details Chief Complaint: Nk/Back Pain Clinical Impression: Muscle spasm of back, Plantar fasciitis of right foot Primary Care Provider: Candy Felix ED Provider: Jony Mcpherson Meds and New Rx's Prescriptions: New lidocaine [Lidoderm] 5 % Adhesive Patch,Medicated 1 patch topical DIRECTED Qty: 5 RF: 0 Continued ibuprofen 600 MG tablet 600 mg PO Q6H PRN (Reason: Pain) Qty: 20 RF: 0 escitalopram oxalate [Lexapro] 20 mg tablet 30 mg PO DAILY AM RF: 0 buspirone 5 mg tablet 5 mg PO BID RF: 0 bupropion HCl [Wellbutrin XL] 300 mg Tablet Extended Release 24 Hr 300 mg PO BID RF: 0 cyclobenzaprine 10 mg Tablet 10 mg PO TID PRNRF: 0 Discharge Instructions Instructions: Plantar Fasciitis Exercises (GEN), Plantar Fasciitis (ED), Muscle Spasm (ED) Additional Instructions: Continue ibuprofen and cyclobenzaprine for your back spasm. Use the Lidoderm patch as directed. Use arch support, ice, exercises for the plantar fasciitis. Follow-up with your primary care next week. Return to ED for chest pain, shortness of breath, fever, urinary symptoms, other concerns. Stand Alone Forms: Work Release Referrals: Candy Felix PA [Primary Care Provider] - Medical Decision Making Patient with musculoskeletal back pain which she has had previously. Did not respond to Flexeril and could not get into primary care so came here. There is no new injuries or trauma. There are no urinary or GI complaints. There is no shortness of breath or cough. She has tenderness in the left lateral lumbar region. Will apply Lidoderm patch to this and have her continue ibuprofen and Flexeril. In regards to the foot symptoms and exam is consistent with plantar fasciitis. She is already wearing decent sneakers. Recommend arch support, ice, nonsteroidals. Follow-up with primary care next week. Return to ED for fever, cough, shortness of breath, abdominal pain, urinary symptoms, neurologic symptoms, other concerns. HPI General Mode of arrival: ambulatory . Date/Time Provider Initiated Documentation: 09/16/18 11:43 . Limitations to Documentation: no limitations . Information obtained by: patient . HPI Narrative: Patient presents to ED with 2 separate complaints. She is having left-sided back muscle spasm which she has had previously. She has taken Motrin and Flexeril without significant relief. Her primary care was unable to see her so she came in here. She denies having urinary symptoms. She denies having chest pain or shortness of breath. She has had this pain previously and usually Flexeril makes it better. She denies any trauma. She denies fever or cough. Second complaint is that of right foot pain in the arch. This is relatively new. There is no trauma. She does have some new sneakers but they are actually well fitting. She has not had this previously. Pain is only in the arch near the heel. Related Data Home Medications Medication Instructions Recorded Confirmed ibuprofen 600 mg PO Q6H PRN #20 tab 03/27/17 09/16/18 buspirone 5 mg tablet 5 mg PO BID 04/02/18 09/16/18 escitalopram 20 mg tablet 30 mg PO DAILY AM tab 04/02/18 09/16/18 bupropion HCl [Wellbutrin XL] 300 mg PO BID 08/22/18 09/16/18 cyclobenzaprine 10 mg PO TID PRN 09/16/18 09/16/18 lidocaine [Lidoderm] 1 patch TOPICAL DIRECTED #5 each 09/16/18 Previous Rx's Medication Instructions Recorded ibuprofen 600 mg PO Q6H PRN #20 tab 03/27/17 lidocaine [Lidoderm] 1 patch TOPICAL DIRECTED #5 each 09/16/18 Allergies Allergy/AdvReac Type Severity Reaction Status Date / Time Penicillins Allergy Intermediate mouth sores Unverified 09/03/18 06:34 tetracycline [Tetracycline] Allergy Mild Skin Rash Unverified 09/03/18 06:34 codeine [Codeine] AdvReac Intermediate Nausea Unverified 09/03/18 06:34 zolpidem tartrate AdvReac Intermediate Mood Unverified 09/03/18 06:34 [From Ambien] General Stated Complaint: Nk/Back Pain PAULINA: 4 Review of Systems Constitutional Denies fever(s) and Denies weakness Cardiovascular Denies chest pain, Denies leg edema and Denies dyspnea Respiratory Denies cough and Denies dyspnea Gastrointestinal Denies abdominal pain, Denies diarrhea, Denies nausea and Denies vomiting Genitourinary Denies hematuria, Denies dysuria and Denies flank pain Musculoskeletal Reports back pain and Denies tingling Comments: Foot pain Integumentary/Breasts Denies rash Neurologic Denies focal weakness, Denies sensory deficit, Denies tingling, Denies paresthesias and Denies weakness FOR[facility], [facility] Medical History Adrenal nodule (Chronic) Sleep apnea (Chronic 12/24/16) 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) Heart palpitations (Chronic 09/20/16) Depression with anxiety (Chronic 05/15/17) Cerebral palsy, hemiplegic (Chronic 10/01/16) Carpal tunnel syndrome of left wrist (Chronic 10/01/16) BMI 40.0-44.9, adult (Chronic 09/20/16) Abnormal uterine bleeding (Chronic 09/20/16) Ventral hernia (Chronic) Anxiety (Chronic) Anxiety (Resolved 09/20/16) Anxiety and depression (Resolved) BMI 40.0-44.9, adult (Resolved) Cerebral palsy, hemiplegic (Resolved) Heart palpitations (Resolved) Hiatal hernia (Resolved) Surgical History Rotator cuff arthropathy of left shoulder (Chronic) Cholecystectomy Dilation and curettage Endometrial Ablation (~2005) Ligation of fallopian tube Vaginal hysterectomy (12/13/16) Social History Smoking/Tobacco Use Status: Never Alcohol Intake: current Alcohol Intake frequency: holidays/special occasions only Drug use: Never Substance use type: does not use Number of Children: 2 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 Do you feel safe at home: Yes Do you feel safe in your relationship?: Yes Exam Const General: cooperative and no acute distress Orientation: alert and oriented x3 Resp Effort & Inspection: normal respiratory effort Auscultation: clear to auscultation bilaterally Back/Spine/Pelvis Cervical Spine: cervical ROM normal Thoracic/Lumbar Spine: thoraco-lumbar ROM limited, No thoracic spinal tendern ess, No lumbar spinal tenderness and other (Tenderness in the left lateral upper lumbar region.) Skin Rashes: no rashes Neuro General: alert, oriented x3, no focal motor deficits and CN's II-XI intact bilaterally Sensory Exam: no sensory deficits noted Extrem General: normal exam except as noted Right lower extremity: foot Details: normal to inspection and tenderness Location: of the plantar foot (arch into heal) Course Vital Signs Temperature 97.7 F 09/16/18 11:17 Pulse 86 09/16/18 11:17 Respiratory Rate 18 09/16/18 11:17 Blood Pressure 117/86 09/16/18 11:17 Pulse Oximetry 97 09/16/18 11:17 Temperature 97.7 F 09/16/18 11:17 Temperature Source Temporal Artery Scan 09/16/18 11:17 Pulse 86 09/16/18 11:17 Respiratory Rate 18 09/16/18 11:17 Respiratory Effort Non-Labored 09/16/18 11:19 Blood Pressure 117/86 09/16/18 11:17 Blood Pressure Position Sitting 09/16/18 11:17 Pulse Oximetry 97 09/16/18 11:17 Pain Level 4 09/16/18 11:17
== END 2018-09-16 12:16 | disposition home or self-care (01) ==
PROVIDERS: Emergency Provider Emergency Medicine; PCP Physician Assistant Medical
DX: M62.830 Muscle spasm of back (principal); M72.2 Plantar fascial fibromatosis
CPT/HCPCS: 99283

== ENCOUNTER 2018-10-24 07:02 | Outpatient (CLI) | payer OTHER, SELFPAY ==
[2018-10-24 08:16] LABS: Anion Gap 7.7 mmol/L (3-11); BUN 19 mg/dL (7-18); CO2 28.3 mmol/L (21.0-32.0); CREATININE 0.75 mg/dL (0.55-1.02); Calcium 9.5 mg/dL (8.5-10.1); Chloride 105 mmol/L (98-107); Glucose 92 mg/dL (70-100); Potassium 4.1 mmol/L (3.5-5.1); Sodium 141 mmol/L (136-145); TSH (W/Ref FT4) 3.09 uIU/mL (0.358-3.74)
[2018-10-27 12:17] LABS: FSH 4.8 mIU/ml; LH 4.4 mIU/ml
== END 2018-10-24 07:22 ==
PROVIDERS: PCP Physician Assistant Medical; Visit Provider Family Medicine
DX: F41.8 Other specified anxiety disorders (principal); N95.9 Unspecified menopausal and perimenopausal disorder
CPT/HCPCS: 36415; 80048; 83001; 83002; 84443

== ENCOUNTER 2019-03-10 06:10 | Emergency (ER) | payer OTHER, SELFPAY ==
[2019-03-10 06:12] VITALS: BP 132/84; PULSE 86; RESP 16; TEMP 36.6; O2SAT 97
--- NOTE | 2019-03-10 06:21 | ED.GENADUL_ITS ---
Discharge Plan Disposition Patient Disposition: HOME Condition: Good Discharge Details Chief Complaint: Allergic Clinical Impression: Allergic reaction caused by a drug Primary Care Provider: Candy Felix ED Provider: Jony Mcpherson [place] Meds and New Rx's Prescriptions: New prednisone 20 mg tablet 40 mg PO DAILY Qty: 8 RF: 0 diphenhydramine HCl [Benadryl Allergy] 25 mg tablet 25 mg PO Q6H PRN (Reason: itching) Qty: 20 RF: 0 famotidine [Pepcid AC] 20 mg tablet 20 mg PO BID Qty: 14 RF: 0 Continued ibuprofen 600 MG tablet 600 mg PO Q6H PRN (Reason: Pain) Qty: 20 RF: 0 escitalopram oxalate [Lexapro] 20 mg tablet 30 mg PO DAILY AM RF: 0 buspirone 5 mg tablet 5 mg PO BID RF: 0 bupropion HCl [Wellbutrin XL] 300 mg Tablet Extended Release 24 Hr 300 mg PO BID RF: 0 lidocaine [Lidoderm] 5 % Adhesive Patch,Medicated 1 patch topical DIRECTED Qty: 5 RF: 0 Discharge Instructions Instructions: General Allergic Reaction (ED) Additional Instructions: Take prednisone daily as directed. May take Benadryl as needed for itching. Pepcid twice a day as directed. Avoid any penicillin derivative medications in the future. It would be okay to try cephalosporins in the future. Follow up with PCP next week if not better. Return to ED for throat swelling, difficulty breathing, other concerns. Stand Alone Forms: Work Release Referrals: Candy Felix PA [Primary Care Provider] - Medical Decision Making Patient with generalized pruritic rash likely related to amoxicillin. No other new exposures. Will start prednisone. Benadryl as needed for pruritus. Pepcid twice a day. Follow-up with primary care next week if not better. Return to ED for any throat or tongue swelling, difficulty breathing, other concerns. HPI General Mode of arrival: ambulatory . Date/Time Provider Initiated Documentation: 03/10/19 06:20 . Limitations to Documentation: no limitations . Information obtained by: patient . HPI Narrative: Patient presents to ED with rash. Started yesterday. Is fairly generalized and very pruritic at this point. She just finished a 2-week course of amoxicillin. She reports allergy to penicillin. She denies any throat or tongue swelling, difficulty breathing, GI symptoms. Related Data Home Medications Medication Instructions Recorded Confirmed ibuprofen 600 mg PO Q6H PRN #20 tab 03/27/17 03/10/19 buspirone 5 mg tablet 5 mg PO BID 04/02/18 03/10/19 escitalopram oxalate 20 mg tablet 30 mg PO DAILY AM tab 04/02/18 03/10/19 bupropion HCl [Wellbutrin XL] 300 mg PO BID 08/22/18 03/10/19 lidocaine [Lidoderm] 1 patch TOPICAL DIRECTED #5 each 09/16/18 03/10/19 diphenhydramine HCl [Benadryl 25 mg PO Q6H PRN #20 tab 03/10/19 Allergy] famotidine [Pepcid AC] 20 mg PO BID #14 tab 03/10/19 prednisone 40 mg PO DAILY #8 tab 03/10/19 Previous Rx's Medication Instructions Recorded ibuprofen 600 mg PO Q6H PRN #20 tab 03/27/17 lidocaine [Lidoderm] 1 patch TOPICAL DIRECTED #5 each 09/16/18 diphenhydramine HCl [Benadryl 25 mg PO Q6H PRN #20 tab 03/10/19 Allergy] famotidine [Pepcid AC] 20 mg PO BID #14 tab 03/10/19 prednisone 40 mg PO DAILY #8 tab 03/10/19 Allergies Allergy/AdvReac Type Severity Reaction Status Date / Time Penicillins Allergy Intermediate rash Verified 03/10/19 06:29 codeine [Codeine] AdvReac Intermediate Nausea Unverified 03/10/19 06:17 zolpidem tartrate AdvReac Intermediate Mood Unverified 03/10/19 06:17 [From Ambien] tetracycline [Tetracycline] AdvReac Mild thrush Unverified 03/10/19 06:29 General Stated Complaint: Allergic PAULINA: 3 Review of Systems ENT Ears, Nose, Mouth, and Throat: Denies lip swelling, Denies nasal congestion, Denies throat swelling and Denies tongue swelling Cardiovascular Cardiovascular: Denies dyspnea Respiratory Respiratory: Denies dyspnea and Denies wheezing Gastrointestinal Gastrointestinal: Denies diarrhea, Denies nausea and Denies vomiting Integumentary/Breasts Skin/Breast: Reports rash Allergic/Immunologic Allergic/Immunologic: Reports urticaria, Denies lip swelling, Denies throat swelling, Denies tongue swelling and Denies wheezing [facility] Medical History (Updated 03/10/19 @ 06:44 by Jony Mcpherson MD) Abnormal uterine bleeding (Chronic 09/20/16) Nl SHG. Nl EMBx. Continued spotting with Norethindrone. Adrenal nodule (Chronic) Incidental finding at the time of abdominal CT scan. Imaging strongly suggestive of benign adenoma. Anxiety and depression (Resolved) BMI 40.0-44.9, adult (Chronic 09/20/16) Carpal tunnel syndrome of left wrist (Chronic 10/01/16) Cerebral palsy, hemiplegic (Chronic 10/01/16) Depression with anxiety (Chronic 05/15/17) Heart palpitations (Chronic 09/20/16) Neg Holter monitor. Cut back on caffeine, started Propranol. Sx improved. Hiatal hernia (Resolved) Small hernia noted as an incidental finding at the time of abdominal CT scan on 03/12/2017. 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 [facility] Social History Smoking/Tobacco Use Status: Never Alcohol Intake: current Alcohol Intake frequency: holidays/special occasions only Drug use: Never Substance use type: does not use Number of Children: 2 current occupation: [employer] Do you feel safe at home: Yes Do you feel safe in your relationship?: Yes Exam Const General: cooperative and comfortable Nutritional Appearance: obese Orientation: alert and oriented x3 HENMT Head: normocephalic and atraumatic Face and sinus: normal facial exam Mouth: lip normal, tongue normal and oropharynx normal Throat: uvula midline Eyes Conjunctivae: conjunctivae normal Sclera: sclerae normal Resp Effort & Inspection: normal respiratory effort Auscultation: clear to auscultation bilaterally Skin Rashes: rashes noted (generalized trunk/arms/legs; raised pruritic papules) Course Vital Signs Vital signs: Vital Signs Temperature 97.9 F 03/10/19 06:12 Pulse 86 03/10/19 06:12 Respiratory Rate 16 03/10/19 06:12 Blood Pressure 132/84 03/10/19 06:12 Pulse Oximetry 97 03/10/19 06:12 Temperature 97.9 F 03/10/19 06:12 Pulse 86 03/10/19 06:12 Respiratory Rate 16 03/10/19 06:12 Respiratory Effort Non-Labored 03/10/19 06:19 Blood Pressure 132/84 03/10/19 06:12 Pulse Oximetry 97 03/10/19 06:12 Pain Level 0 03/10/19 06:12
[2019-03-10] MEDS: diphenhydrAMINE 25 MG CAP PO (06:34)
[2019-03-10] MEDS: Famotidine 20 MG TAB PO (06:34)
[2019-03-10] MEDS: predniSONE 20 MG TAB 60 MG PO (06:34)
[2019-03-10 06:42] VITALS: BP 132/84; PULSE 86; RESP 16; O2SAT 97
== END 2019-03-10 06:45 | disposition home or self-care (01) ==
PROVIDERS: Emergency Provider Emergency Medicine; PCP Physician Assistant Medical
DX: R21 Rash and other nonspecific skin eruption (principal); T36.0X5A Adverse effect of penicillins, initial encounter
CPT/HCPCS: 99283; J7512

== ENCOUNTER 2019-03-23 08:57 | Emergency (ER) | payer OTHER, SELFPAY ==
[2019-03-23 09:04] VITALS: BP 137/82; PULSE 101; RESP 16; TEMP 37; O2SAT 96
--- NOTE | 2019-03-23 09:53 | ED.GENADUL_ITS ---
Discharge Plan Disposition Patient Disposition: HOME Condition: Stable Discharge Details Chief Complaint: DentalOral Clinical Impression: Pain, dental Primary Care Provider: Candy Felix ED Provider: Linnae Ritchie Home Meds and New Rx's Prescriptions: New clindamycin HCl 150 mg capsule 450 mg PO TID Qty: 90 RF: 0 Continued ibuprofen 600 MG tablet 600 mg PO Q6H PRN (Reason: Pain) Qty: 20 RF: 0 escitalopram oxalate [Lexapro] 20 mg tablet 30 mg PO DAILY AM RF: 0 buspirone 5 mg tablet 5 mg PO BID RF: 0 bupropion HCl [Wellbutrin XL] 300 mg Tablet Extended Release 24 Hr 300 mg PO BID RF: 0 lidocaine [Lidoderm] 5 % Adhesive Patch,Medicated 1 patch topical DIRECTED Qty: 5 RF: 0 Discharge Instructions Instructions: Clindamycin (By mouth), Oxycodone/Acetaminophen (By mouth), Toothache (ED) Additional Instructions: Please return immediately to the emergency department if you develop any new or worsening symptoms or if you become otherwise concerned. It is extremely important that you call as soon as possible to make an appointment to be seen in follow-up for this visit by her primary care doctor, and also that you attend your scheduled appointment next Saturday with your dental surgeon. Please take 1 tablet of the Percocet before bed tonight and tomorrow night as needed for pain. Do not take the second Percocet within 8 hours of the first Percocet. Do not take Percocet within 6 hours of taking any other sedating medication or alcohol, I do not drive/operate machinery/make important decisions while taking Percocet. Referrals: Candy Felix PA [Primary Care Provider] - Discharge Data Discharge Date/Time-TO BE ENTERED AT DEPARTURE: 03/23/19 10:25 Medical Decision Making Rosa Posadas is a 48 y/o woman with h/o anxiety, migraine, BENNY who presented to the emergency department with b/l rear lower dental pain worse on the right for one month, gradually progressive. Now off of abx 2/2 allergic reaction. Pt well and non-toxic appearing on exam. Exam/hx not c/w dental abscess, deep space infection/abscess, impending airway compromise, sepsis, meningitis, other acute emergent life threatening process. Plan for clindamycin. Percocet x2 for take home use for sleep tonight and tomorrow. I had a lengthy discussion with the Pt re: RTED precautions, home care, importance of outot f/u with dental as scheduled and with PCP, and safe opiate use. Pt verbalized understanding of the plan and was amenable. All questions were answered. Pt d/kofi to home with clear plan for outpt f/u. Medical Records Medical records reviewed: Yes I reviewed the patient's medical records. HPI General Mode of arrival: ambulatory . Date/Time Provider Initiated Documentation: 03/23/19 09:23 . Limitations to Documentation: no limitations . Information obtained by: patient, RN notes reviewed and old records reviewed . HPI Narrative: Rosa Posadas is a 48 y/o woman with h/o anxiety, migraine headache, BENNY presenting to the emergency department with dental pain. Pt reports that she her b/l lower rear molars are broken, and she has been having pain in both teeth for past month. Pt was started on amoxicillin but stopped taking this 03/10 2/2 allergic reaction. Pt reports that since stopping abx pain has been increasing and is worse in the right tooth. Pt states that she has appointment scheduled with dentist for next week for tooth extraction. Pt reports that she has no other pain, no facial swelling, no trouble swallowing, no change in voice, no fevers, no vomiting, no diarrhea, no SOB. Has been eating and drinking as usual. Related Data Home Medications Medication Instructions Recorded Confirmed ibuprofen 600 mg PO Q6H PRN #20 tab 03/27/17 03/23/19 buspirone 5 mg tablet 5 mg PO BID 04/02/18 03/23/19 escitalopram oxalate 20 mg tablet 30 mg PO DAILY AM tab 04/02/18 03/23/19 bupropion HCl [Wellbutrin XL] 300 mg PO BID 08/22/18 03/23/19 lidocaine [Lidoderm] 1 patch TOPICAL DIRECTED #5 each 09/16/18 03/23/19 clindamycin HCl 450 mg PO TID #90 cap 03/23/19 Previous Rx's Medication Instructions Recorded ibuprofen 600 mg PO Q6H PRN #20 tab 03/27/17 lidocaine [Lidoderm] 1 patch TOPICAL DIRECTED #5 each 09/16/18 clindamycin HCl 450 mg PO TID #90 cap 03/23/19 Allergies Allergy/AdvReac Type Severity Reaction Status Date / Time amoxicillin Allergy Intermediate Hives Unverified 03/23/19 09:14 Penicillins Allergy Intermediate rash Verified 03/23/19 09:14 codeine [Codeine] AdvReac Intermediate Nausea Unverified 03/23/19 09:14 zolpidem tartrate AdvReac Intermediate Mood Unverified 03/23/19 09:14 [From Ambien] tetracycline [Tetracycline] AdvReac Mild thrush Unverified 03/23/19 09:14 General Stated Complaint: DentalOral PAULINA: 4 Review of Systems Review of Systems Narrative: Constitutional: denies fevers Eyes: denies eye pain ENT: denies facial pain, voice change, sore throat, ear pain, reports dental pain Cardiovascular: denies chest pain Respiratory: denies SOB, cough GI: denies abdominal pain, vomiting : denies flank pain MSK: denies back pain, neck pain, arthralgias, myalgias Skin: denies rash Neuro: denies headaches PFSH Medical History Abnormal uterine bleeding (Chronic 09/20/16) Nl SHG. Nl EMBx. Continued spotting with Norethindrone. Adrenal nodule (Chronic) Incidental finding at the time of abdominal CT scan. Imaging strongly suggestive of benign adenoma. Anxiety and depression (Resolved) BMI 40.0-44.9, adult (Chronic 09/20/16) Carpal tunnel syndrome of left wrist (Chronic 10/01/16) Cerebral palsy, hemiplegic (Chronic 10/01/16) Depression with anxiety (Chronic 05/15/17) Heart palpitations (Chronic 09/20/16) Neg Holter monitor. Cut back on caffeine, started Propranol. Sx improved. Hiatal hernia (Resolved) Small hernia noted as an incidental finding at the time of abdominal CT scan on 03/12/2017. 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 [facility] Social History Smoking/Tobacco Use Status: Never Alcohol Intake: current Alcohol Intake frequency: holidays/special occasions only Drug use: Never Substance use type: does not use Number of Children: 2 current occupation: [employer] Do you feel safe at home: Yes Do you feel safe in your relationship?: Yes Exam Narrative Exam Narrative: Constitutional: well and [id number], pleasant, conversing normally HENT: head atraumatic/normocephalic/normal inspection, mucous membranes moist, dental caries b/l rear lower molars, erythema of gingiva adjacent to right lower molar, no dental abscess or drainage, no tongue elevation, no intraoral lesion or edema, uvula midline, no trismus Eyes: conjunctiva normal, sclera normal, pupils 3mm b/l Neck: no stridor, full painless ROM, trachea midline, no LAD, Resp: normal work of breathing, LCTAB Cardio: normal rate, normal rhythm, no mumur Skin: warm, dry, normal color, no rash Neuro: alert, not altered, grossly non-focal, normal tone Ext: moving all extremities equally Psych: normal mood, normal affect, normal behavior Course Vital Signs Vital signs: Vital Signs Temperature 37 C 03/23/19 09:04 Pulse 101 H 03/23/19 09:04 Respiratory Rate 16 03/23/19 09:04 Blood Pressure 137/82 03/23/19 09:04 Pulse Oximetry 96 03/23/19 09:04 Temperature 37 C 03/23/19 09:04 Temperature Source Skin 03/23/19 09:04 Pulse 101 H 03/23/19 09:04 Respiratory Rate 16 03/23/19 09:04 Respiratory Effort Short of Breath 03/23/19 09:04 Blood Pressure 137/82 03/23/19 09:04 Blood Pressure Position Sitting 03/23/19 09:04 Pulse Oximetry 96 03/23/19 09:04 Oxygen Delivery Method Room Air 03/23/19 09:04 Oxygen Flow Rate 0 03/23/19 09:04 Pain Level 6 03/23/19 09:16
[2019-03-23] MEDS: Clindamycin 150 MG CAP 450 MG PO (10:19)
[2019-03-23] MEDS: oxyCODONE 5 mg/Acetaminophen 325 mg TAB 2 TAB PO (10:20)
== END 2019-03-23 10:25 | disposition home or self-care (01) ==
LOC: ER 10:31
PROVIDERS: Emergency Provider Student in an Organized Health Care Education/Training Program; PCP Physician Assistant Medical
DX: K08.89 Other specified disorders of teeth and supporting structures (principal)
CPT/HCPCS: 99283

== ENCOUNTER 2019-08-12 09:51 | Emergency (ER) | payer OTHER, SELFPAY ==
[2019-08-12 09:56] VITALS: BP 151/94; PULSE 86; RESP 18; TEMP 36.7; O2SAT 98
--- NOTE | 2019-08-12 10:15 | W.ED.GENAD ---
Discharge Plan Disposition Patient Disposition: HOME Condition: Stable Discharge Details Chief Complaint: RespSymp Clinical Impression: Acute viral syndrome Primary Care Provider: Candy Felix ED Provider: Karthik Merritt Home Meds and New Rx's Prescriptions: Continued ibuprofen 600 MG tablet 600 mg PO Q6H PRN (Reason: Pain) Qty: 20 RF: 0 escitalopram oxalate [Lexapro] 20 mg tablet 30 mg PO DAILY AM RF: 0 buspirone 5 mg tablet 5 mg PO BID RF: 0 bupropion HCl [Wellbutrin XL] 300 mg Tablet Extended Release 24 Hr 300 mg PO BID RF: 0 lidocaine [Lidoderm] 5 % Adhesive Patch,Medicated 1 patch topical DIRECTED Qty: 5 RF: 0 Discharge Instructions Instructions: Viral Syndrome (ED) Additional Instructions: Rest. Plenty of fluids to avoid dehydration. [id number] medications as directed for symptomatic control. Please watch for new or worsening symptoms and return to the ER for any concerns. Stand Alone Forms: Work Release Medical Decision Making 48-year-old female presents with 3-day history of viral-like syndrome. She is outside the window for Tamiflu, will not test for the flu. Extremely low suspicion for strep throat or pneumonia, rapid strep and chest x-ray not indicated. Discussed my thought process with patient, she is comfortable with this plan. She feels as though she can likely go back to work tomorrow, I will provide a work note for today and the 2 days prior. We discussed resting, plenty of fluids to avoid dehydration, and treating her symptoms with [id number] medications. She appears well, nontoxic. No additional questions or concerns upon discharge Medical Records Medical records reviewed: Yes I reviewed the patient's medical records. HPI General Mode of arrival: ambulatory. Date/Time Provider Initiated Documentation: 08/12/19 09:53. Limitations to Documentation: no limitations. Information obtained by: patient. HPI Narrative: 48-year-old female presents to the ER today reporting 3-day history of general malaise, nasal congestion, headaches, cough, sore throat, and myalgias. She took Mucinex last night which did help with her cough but she prefers not to take it because it makes her sleepy. She has not taken any other medications. She reports that her whole family has similar symptoms, 2 of them have been evaluated and both tested negative for the flu. She denies any documented fever. She reports that she was unable to go to work for 3 days and after missing the third day she requires a work note. Related Data Home Medications Medication Instructions Recorded Confirmed ibuprofen 600 mg PO Q6H PRN #20 tab 03/27/17 08/12/19 buspirone 5 mg tablet 5 mg PO BID 04/02/18 08/12/19 escitalopram oxalate 20 mg tablet 30 mg PO DAILY AM tab 04/02/18 08/12/19 bupropion HCl [Wellbutrin XL] 300 mg PO BID 08/22/18 08/12/19 lidocaine [Lidoderm] 1 patch TOPICAL DIRECTED #5 each 09/16/18 08/12/19 Previous Rx's Medication Instructions Recorded ibuprofen 600 mg PO Q6H PRN #20 tab 03/27/17 lidocaine [Lidoderm] 1 patch TOPICAL DIRECTED #5 each 09/16/18 Allergies Allergy/AdvReac Type Severity Reaction Status Date / Time amoxicillin Allergy Intermediate Hives Unverified 08/12/19 10:00 Penicillins Allergy Intermediate rash Verified 08/12/19 10:00 codeine [Codeine] AdvReac Intermediate Nausea Unverified 08/12/19 10:00 zolpidem tartrate AdvReac Intermediate Mood Unverified 08/12/19 10:00 [From Ambien] tetracycline [Tetracycline] AdvReac Mild thrush Unverified 08/12/19 10:00 General Stated Complaint: RespSymp PAULINA: 3 Review of Systems Constitutional Constitutional: Denies chills, Reports fatigue, Denies fever(s) and Reports headache(s) Eyes Eyes: Denies eye discharge ENT Ears, Nose, Mouth, and Throat: Denies otalgia, Reports headache(s), Reports nasal congestion and Reports sore throat Cardiovascular Cardiovascular: Denies chest pain and Denies dyspnea Respiratory Respiratory: Reports cough and Denies dyspnea Gastrointestinal Gastrointestinal: Denies abdominal pain, Reports diarrhea, Denies nausea and Denies vomiting Genitourinary Genitourinary: Denies dysuria Musculoskeletal Musculoskeletal: Reports myalgias Integumentary/Breasts Skin/Breast: Denies rash Neurologic Neurologic: Reports headache(s) Endocrine Endocrine: Reports fatigue [facility] Medical History Abnormal uterine bleeding (Chronic 09/20/16) Nl SHG. Nl EMBx. Continued spotting with Norethindrone. Adrenal nodule (Chronic) Incidental finding at the time of abdominal CT scan. Imaging strongly suggestive of benign adenoma. Anxiety and depression (Resolved) BMI 40.0-44.9, adult (Chronic 09/20/16) Carpal tunnel syndrome of left wrist (Chronic 10/01/16) Cerebral palsy, hemiplegic (Chronic 10/01/16) Depression with anxiety (Chronic 05/15/17) Heart palpitations (Chronic 09/20/16) Neg Holter monitor. Cut back on caffeine, started Propranol. Sx improved. Hiatal hernia (Resolved) Small hernia noted as an incidental finding at the time of abdominal CT scan on 03/12/2017. 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 Do you feel safe at home: Yes Do you feel safe in your relationship?: Yes Exam Const General: cooperative, healthy appearing, comfortable and no acute distress Orientation: alert and awake [facility] Head: normal to inspection, normocephalic and atraumatic Ears: external ears normal, TM's normal bilaterally and EAC's normal Mouth: moist mucous membranes Throat: uvula midline, no peritonsillar masses, posterior oropharynx abnormal erythema (mild), no postnasal drainage and uvula not displaced Eyes Conjunctivae: conjunctivae normal Neck Neck: normal visual inspection, full ROM, no lymphadenopathy, no meningeal signs, trachea midline and supple Resp Effort & Inspection: normal respiratory effort and able to speak in complete sentences Auscultation: clear to auscultation bilaterally Cardio Rate: regular rate Rhythm: regular rhythm Skin General skin exam: no rashes or lesions noted Neuro General: alert and awake Psych Appearance: grossly normal Mental Status: mental status grossly normal Course Vital Signs Vital signs: Vital Signs Temperature 36.7 C 08/12/19 09:56 Pulse 86 08/12/19 09:56 Respiratory Rate 18 08/12/19 09:56 Blood Pressure 151/94 H 08/12/19 09:56 Pulse Oximetry 98 08/12/19 09:56 Temperature 36.7 C 08/12/19 09:56 Temperature Source Skin 08/12/19 09:56 Pulse 86 08/12/19 09:56 Respiratory Rate 18 08/12/19 09:56 Respiratory Effort Non-Labored 08/12/19 09:59 Respiratory Depth Normal 08/12/19 09:59 Blood Pressure 151/94 H 08/12/19 09:56 Blood Pressure Position Sitting 08/12/19 09:56 Pulse Oximetry 98 08/12/19 09:56 Oxygen Delivery Method Room Air 08/12/19 09:56 Oxygen Flow Rate 0 08/12/19 09:56 Pain Level 4 08/12/19 09:56
[2019-08-12 10:26] VITALS: BP 113/75; PULSE 88; RESP 18; TEMP 36.2; O2SAT 97
== END 2019-08-12 10:27 | disposition home or self-care (01) ==
PROVIDERS: Emergency Provider Physician Assistant; PCP Physician Assistant Medical
DX: B34.9 Viral infection, unspecified (principal)
CPT/HCPCS: 99282

== ENCOUNTER 2020-09-05 17:42 | Emergency (ER) | payer SELFPAY ==
[2020-09-05 17:56] VITALS: BP 147/91; PULSE 85; RESP 16; TEMP 36.2; O2SAT 98
--- NOTE | 2020-09-05 18:30 | ED.GENADUL_ITS ---
Discharge Plan Disposition Patient Disposition: HOME Condition: Stable Discharge Details Clinical Impression: Left leg swelling, Pain of left calf Primary Care Provider: Candy Felix ED Provider: Wyatt Mullins Home Meds and New Rx's Prescriptions: Continued ibuprofen 600 MG tablet 600 mg PO Q6H PRN (Reason: Pain) Qty: 20 RF: 0 escitalopram oxalate [Lexapro] 20 mg tablet 30 mg PO DAILY AM RF: 0 buspirone 5 mg tablet 5 mg PO BID RF: 0 bupropion HCl [Wellbutrin XL] 300 mg Tablet Extended Release 24 Hr 300 mg PO BID RF: 0 Discharge Instructions Instructions: Enoxaparin (By injection), Deep Vein Thrombosis (ED), Leg Edema (ED) Additional Instructions: At this time your symptoms are very reassuring but there is still concern that there may be a potential blood clots. You have been given the Lovenox injections which will last for 24 hours. Please contact the circled phone number and leave a message tonight. You can also call them back in the morning. They will help set up a time to come in for your ultrasound. Please wear knee- high compression stockings at all times. Please come to the ER after your ultrasound for further direction. If the ultrasound is negative for clot the swelling please still keep your legs elevated as often as possible and wear the compression stockings. If you notice any worsening of your symptoms, or any new symptoms such as vomiting, diarrhea, fever, chills, shortness of breath, chest pain, numbness, weakness, or fainting , please return immediately to the emergency department for reevaluation. Please follow up with your primary care provider as soon as possible for reassessment and reevaluation. As always, it was a pleasure participating in your medical care today. Referrals: Candy Felix PA [Primary Care Provider] - Discharge Data Discharge Date/Time-TO BE ENTERED AT DEPARTURE: 09/05/20 18:40 Medical Decision Making This is a 49-year-old female who presents with swelling of her left lower extremity. Patient states that for the last 3 days she has had mild swelling around her left ankle left calf with mild soreness in her left calf. She denies any falls, trauma, or injury. Denies PE risk factors such as recent long car rides, immobilization, recent surgery, prior history of DVT or PE, family history of PE or DVT, morbid obesity, exogenous estrogen and smoking, hemoptysis, history of cancer. She denies any chest pain or shortness of breath. She denies any pain in her knee or thigh. No other complaints at this time. She is not on any blood thinning medications. No significant pain with ambulation at all or use. Pain is mainly present with palpation of the calf. Patient's exam demonstrates no evidence of vascular compromise, skin changes, she does have mild swelling in the left lower extremity, but this is mild. Pitting edema is trace. Normal sensation and movement. No bony tenderness. Patient has no risk factors of significance for DVT, however it is on the differential. Ultrasound is not currently available. We did discuss anticoagulation options for the time being. Through shared decision-making process we will give a subcu injection of Lovenox. We will schedule for ultrasound follow-up tomorrow. Recommend tight stockings at all times, elevation of her legs when she can. She has no clinical symptoms of PE, chest pain, shortness of breath or other concerning etiology. Vital signs are notably unremarkable and reassuring. I have extensively reviewed the treatment plan and discharge instructions with the patient. I have addressed all patient concerns at this time. The patient was made aware of what symptoms to monitor for that would warrant a return to the emergency department. Discussed the plan with the patient, they demonstrate verbal understanding and agreement with our assessment and plan at this time. The documentation in this chart was dictated using [employer] dictation software. Please excuse any dictation errors. HPI General Date/Time Provider Initiated Documentation: 09/05/20 17:43 . HPI Narrative: This is a 49-year-old female who presents with swelling of her left lower extremity. Patient states that for the last 3 days she has had mild swelling around her left ankle left calf with mild soreness in her left calf. She denies any falls, trauma, or injury. Denies PE risk factors such as recent long car rides, immobilization, recent surgery, prior history of DVT or PE, fam ridge history of PE or DVT, morbid obesity, exogenous estrogen and smoking, hemoptysis, history of cancer. She denies any chest pain or shortness of breath. She denies any pain in her knee or thigh. No other complaints at this time. She is not on any blood thinning medications. No significant pain with ambulation at all or use. Pain is mainly present with palpation of the calf. Related Data Home Medications Medication Instructions Recorded Confirmed ibuprofen 600 mg PO Q6H PRN #20 tab 03/27/17 09/05/20 buspirone 5 mg tablet 5 mg PO BID 04/02/18 09/05/20 escitalopram oxalate 20 mg tablet 30 mg PO DAILY AM tab 04/02/18 09/05/20 bupropion HCl [Wellbutrin XL] 300 mg PO BID 08/22/18 09/05/20 Previous Rx's Medication Instructions Recorded ibuprofen 600 mg PO Q6H PRN #20 tab 03/27/17 Allergies Allergy/AdvReac Type Severity Reaction Status Date / Time amoxicillin Allergy Intermediate Hives Unverified 09/05/20 18:01 Penicillins Allergy Intermediate rash Verified 09/05/20 18:01 codeine [Codeine] AdvReac Intermediate Nausea Unverified 09/05/20 18:01 zolpidem tartrate AdvReac Intermediate Mood Unverified 09/05/20 18:01 [From Ambien] tetracycline [Tetracycline] AdvReac Mild thrush Unverified 09/05/20 18:01 General Stated Complaint: Orthopedic PAULINA: 4 Review of Systems All systems reviewed & are unremarkable except as noted in HPI and below PFSH Medical History Abnormal uterine bleeding (09/20/16) Nl SHG. Nl EMBx. Continued spotting with Norethindrone. Adrenal nodule Incidental finding at the time of abdominal CT scan. Imaging strongly suggestive of benign adenoma. Anxiety and depression BMI 40.0-44.9, adult (09/20/16) Carpal tunnel syndrome of left wrist (10/01/16) Cerebral palsy, hemiplegic (10/01/16) Depression with anxiety (05/15/17) Heart palpitations (09/20/16) Neg Holter monitor. Cut back on caffeine, started Propranol. Sx improved. Hiatal hernia Small hernia noted as an incidental finding at the time of abdominal CT scan on 03/12/2017. Neurocardiogenic pre-syncope (10/25/16) Sleep apnea (12/24/16) Ventral hernia Surgical History Cholecystectomy Dilation and curettage Endometrial Ablation (~2005) Novasure Ligation of fallopian tube Rotator cuff arthropathy of left shoulder Vaginal hysterectomy (12/13/16) LAVH with ovarian conservation. aoc Family History Mother Diabetes Asthma Social History Smoking/Tobacco Use Status: Never Smoking risk assessment performed?: Yes Alcohol Intake: current Alcohol Intake frequency: holidays/special occasions only Drug use: Never Substance use type: does not use Number of Children: 2 current occupation: [employer] Do you feel safe at home: Yes Do you feel safe in your relationship?: Yes Exam Narrative Exam Narrative: 1.Const: Well-nourished, Well-developed, appearing stated age 2.Eyes: PERRL, no conjunctival injection, and symmetrical lids. 3.ENT: Atraumatic external nose and ears. Moist MM. Neck: Symmetric, trachea midline, No thyromegaly. 4.CVS: +S1/S2, No murmurs or gallops. Peripheral pulses 2+ and equal in all extremities. Brisk capillary refill in all extremities. 5.RESP: Unlabored respiratory effort. Clear to auscultation bilaterally. No wheezes rales or rhonchi 6.GI: Soft, Nontender/Nondistended, No hepatosplenomegaly. No guarding or rebound. 7.MSK: Normocephalic/Atraumatic, Extremities w/o deformity. No cyanosis or clubbing, Normal movement of all extremities. Mild swelling of the left lower extremity, no skin color changes, no temperature changes compared to the right. Mild/minimal tenderness over the calf. No bony tenderness. Dorsalis pedis and posterior tibial pulse +2 bilaterally. Good capillary refill, good sensation. Normal strength. No pain or tenderness in the knee, posterior popliteal space, or thigh. 8.Skin: Warm, Dry. No rashes or lesions. 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 Sensation grossly intact, no focal neurologic deficits. 10.Psych: (AAO) x3. Appropriate mood and affect Course Vital Signs Vital signs: Vital Signs Temperature 36.2 C L 09/05/20 17:56 Pulse 85 09/05/20 17:56 Respiratory Rate 16 09/05/20 17:56 Blood Pressure 147/91 H 09/05/20 17:56 Pulse Oximetry 98 09/05/20 17:56 Temperature 36.2 C L 09/05/20 17:56 Temperature Source Skin 09/05/20 17:56 Pulse 85 09/05/20 17:56 Respiratory Rate 16 09/05/20 17:56 Respiratory Effort Non-Labored 09/05/20 17:56 Blood Pressure 147/91 H 09/05/20 17:56 Blood Pressure Position Sitting 09/05/20 17:56 Pulse Oximetry 98 09/05/20 17:56 Oxygen Delivery Method Room Air 09/05/20 17:56 Oxygen Flow Rate 0 09/05/20 17:56 Pain Level 4 09/05/20 17:56
== END 2020-09-05 18:40 | disposition home or self-care (01) ==
PROVIDERS: Emergency Provider Student in an Organized Health Care Education/Training Program; PCP Physician Assistant Medical
DX: M79.662 Pain in left lower leg (principal); R22.42 Localized swelling, mass and lump, left lower limb
CPT/HCPCS: 96372; 99284; J1650

== ENCOUNTER 2020-09-06 10:23 | Emergency (ER) | payer SELFPAY ==
[2020-09-06 10:30] VITALS: BP 130/84; PULSE 80; RESP 18; TEMP 36.5; O2SAT 98
--- NOTE | 2020-09-06 10:57 | W.ED.GENAD ---
Discharge Plan Disposition Patient Disposition: HOME Condition: Stable Discharge Details Clinical Impression: Left leg swelling Primary Care Provider: Candy Felix ED Provider: Asya Waldrop Home Meds and New Rx's Prescriptions: Continued ibuprofen 600 MG tablet 600 mg PO Q6H PRN (Reason: Pain) Qty: 20 RF: 0 escitalopram oxalate [Lexapro] 20 mg tablet 30 mg PO DAILY AM RF: 0 buspirone 5 mg tablet 5 mg PO BID RF: 0 bupropion HCl [Wellbutrin XL] 300 mg Tablet Extended Release 24 Hr 300 mg PO BID RF: 0 Discharge Instructions Instructions: Edema (ED) Additional Instructions: Follow up with primary care provider in 3-5 days. Return to ED sooner if any worsening chest pain, shortness of breath, dizziness or concerns. Increase oral fluids. Wear compression stockings. Decrease sodium intake. Speak with your primary care provider regarding starting on a low-dose diuretic if needed. Keep extremity elevated as much as possible, try not to have any prolonged sitting. Referrals: Candy Felix PA [Primary Care Provider] - Discharge Data Discharge Date/Time-TO BE ENTERED AT DEPARTURE: 09/06/20 11:31 Medical Decision Making 49-year-old female presents the ER chief complaint of left lower extremity swelling she was seen here last night referred for an ultrasound this morning which she did have. Preliminary report from the consulting technical director is negative for DVT. Patient denies any chest pain, shortness of breath, denies any known injuries. Has full range of motion noted to her ankle and foot. She does have a follow-up appointment with PCP tomorrow encouraged her to keep that appointment. I did discuss with her to bring up with her PCP starting and possible low-dose diuretic. She verbalizes understanding at this time. Result is noted below. CLINICAL HISTORY: LT LEG SWELLING, ? DVT. TECHNIQUE: Ultrasound performed using standard protocol. COMPARISON: US MARTI from 12/17/2017 FINDINGS: Duplex venous ultrasound was performed according to the usual protocol. The deep veins are freely compressible throughout and there is normal flow augmentation with manual calf compression. 2D and Doppler evaluation are unremarkable. IMPRESSION: No evidence of deep venous thrombosis of the left lower extremity. Discussed weight loss, exercise, decreasing sodium intake, and ultrasound results with patient who verbalizes understanding. She has a follow-up appointment tomorrow morning. HPI General Mode of arrival: ambulatory. Date/Time Provider Initiated Documentation: 09/06/20 10:29. Limitations to Documentation: no limitations. Information obtained by: patient. HPI Narrative: 49-year-old female presents to the ED for a recheck status post had an ultrasound done this morning. Patient was seen in the ER last night and referred for outpatient ultrasound for some left lower extremity swelling. She reports that this is been ongoing for the last 2 days which she has noted her socks being too tight. She does state that she does sit for prolonged periods of time at her job. She denies any chest pain or shortness of breath, she denies any known injuries. Related Data Home Medications Medication Instructions Recorded Confirmed ibuprofen 600 mg PO Q6H PRN #20 tab 03/27/17 09/06/20 buspirone 5 mg tablet 5 mg PO BID 04/02/18 09/06/20 escitalopram oxalate 20 mg tablet 30 mg PO DAILY AM tab 04/02/18 09/06/20 bupropion HCl [Wellbutrin XL] 300 mg PO BID 08/22/18 09/06/20 Previous Rx's Medication Instructions Recorded ibuprofen 600 mg PO Q6H PRN #20 tab 03/27/17 Allergies Allergy/AdvReac Type Severity Reaction Status Date / Time amoxicillin Allergy Intermediate Hives Unverified 09/06/20 10:35 Penicillins Allergy Intermediate rash Verified 09/06/20 10:35 codeine [Codeine] AdvReac Intermediate Nausea Unverified 09/06/20 10:35 zolpidem tartrate AdvReac Intermediate Mood Unverified 09/06/20 10:35 [From Ambien] tetracycline [Tetracycline] AdvReac Mild thrush Unverified 09/06/20 10:35 General Stated Complaint: Recheck PAULINA: 5 Review of Systems All systems reviewed & are unremarkable except as noted in HPI and below Musculoskeletal Musculoskeletal: Reports as per HPI and Reports other (Swelling left lower extremity) [facility] Medical History (Updated 09/06/20 @ 11:01 by Asya Waldrop) Abnormal uterine bleeding (09/20/16) Nl SHG. Nl EMBx. Continued spotting with Norethindrone. Adrenal nodule Incidental finding at the time of abdominal CT scan. Imaging strongly suggestive of benign adenoma. Anxiety and depression BMI 40.0-44.9, adult (09/20/16) Carpal tunnel syndrome of left wrist (10/01/16) Cerebral palsy, hemiplegic (10/01/16) Depression with anxiety (05/15/17) Heart palpitations (09/20/16) Neg Holter monitor. Cut back on caffeine, started Propranol. Sx improved. Hiatal hernia Small hernia noted as an incidental finding at the time of abdominal CT scan on 03/12/2017. Neurocardiogenic pre-syncope (10/25/16) Sleep apnea (12/24/16) Ventral hernia Surgical History Cholecystectomy Dilation and curettage Endometrial Ablation (~2005) Novasure Ligation of fallopian tube Rotator cuff arthropathy of left shoulder Vaginal hysterectomy (12/13/16) LAVH with ovarian conservation. aoc Family History Mother Diabetes Asthma Social History Smoking/Tobacco Use Status: Never Smoking risk assessment performed?: Yes Alcohol Intake: current Alcohol Intake frequency: holidays/special occasions only Drug use: Never Substance use type: does not use Number of Children: 2 current occupation: [employer] Do you feel safe at home: Yes Do you feel safe in your relationship?: Yes Exam Narrative Exam Narrative: Constitutional: Alert and oriented x3. Appears stated age. Overweight body habitus. Head: Normocephalic, no trauma. Chest: RRR, Normal S1, S2, distal pulses intact. Resp: Lungs clear to auscultation bilaterally, no wheezes, rales, or rhonchi. Musculoskeletal: Normal gait, 5/5 strength to all four extremities. 2+ edema noted to left lower extremity, no erythema no obvious deformity dorsal pedal pulses intact circulation sensation movement intact to the dorsal extremity. Skin: No suspicious rashes or lesions. Capillary refill less than 2 sec. Neurologic: Cranial nerves II-XII intact. Alert and oriented x 3. DTR's intact. Hematologic/Lymphatic: No ecchymosis, no lymphadenopathy. Course Vital Signs Vital signs: Vital Signs Temperature 36.5 C 09/06/20 10:30 Pulse 80 09/06/20 10:30 Respiratory Rate 18 09/06/20 10:30 Blood Pressure 130/84 09/06/20 10:30 Pulse Oximetry 98 09/06/20 10:30 Temperature 36.5 C 09/06/20 10:30 Temperature Source Temporal Artery Scan 09/06/20 10:30 Pulse 80 09/06/20 10:30 Respiratory Rate 18 09/06/20 10:30 Respiratory Effort Non-Labored 09/06/20 10:34 Blood Pressure 130/84 09/06/20 10:30 Blood Pressure Position Sitting 09/06/20 10:30 Pulse Oximetry 98 09/06/20 10:30 Oxygen Delivery Method Room Air 09/06/20 10:30 Oxygen Flow Rate 0 09/06/20 10:30 Pain Level 4 09/06/20 10:30
== END 2020-09-06 11:31 | disposition home or self-care (01) ==
PROVIDERS: Emergency Provider Registered Nurse Emergency; PCP Physician Assistant Medical
DX: R60.0 Localized edema (principal)
CPT/HCPCS: 99281

== ENCOUNTER 2020-09-14 20:15 | Outpatient (REF) | payer SELFPAY ==
[2020-09-14 21:10] LABS: Abs Immature Grans 0.03 10^3/uL (0.0-0.06); Absolute Basophil Count 0.05 10^3/uL (0.0-0.2); Absolute Eosinophil Count 0.19 10^3/uL (0.0-0.7); Absolute Lymphocyte Count 4.48 10^3/uL (1.2-3.4); Absolute Monocyte Count 0.82 10^3/uL (0.1-0.8); Absolute Neutrophil Count 5.69 10^3/uL (1.2-6.7); Basophils % 0.4; Eosinophils % 1.7; HCT 38.7 % (36.0-46.0); Immature Grans % 0.3; Lymphocytes % 39.8; MCH 30.8 pg (27.0-33.0); MCHC 33.6 % (32.0-36.0); MCV 91.7 fL (80-95); MPV 9.7 fL (8.0-11.0); Monocytes % 7.3; Neutrophils % 50.5; Nucleated RBC 0 %; Platelet Count 408 10^3/uL (130-400); RBC 4.22 10^6/uL (3.93-5.22); RDW-SD 43.8 fL; WBC 11.26 10^3/uL (4.4-10.8)
[2020-09-14 21:16] LABS: Anion Gap 7.4 mmol/L (3-11); BUN 10 mg/dL (7-18); CO2 28.6 mmol/L (21.0-32.0); CREATININE 0.7 mg/dL (0.55-1.02); Calcium 9.4 mg/dL (8.5-10.1); Calculated LDL 91 mg/dL (<100); Chloride 105 mmol/L (98-107); Cholesterol 169 mg/dL (<200); Glucose 77 mg/dL (74-106); HDL Cholesterol 64 mg/dL (40-60); Potassium 4.4 mmol/L (3.5-5.1); Sodium 141 mmol/L (136-145); TSH (W/Ref FT4) 1.92 uIU/mL (0.36-3.74); Triglyceride 71 mg/dL (<150)
== END 2020-09-14 20:16 | disposition home or self-care (01) ==
LOC: NCHCN 20:15
PROVIDERS: PCP Physician Assistant Medical; Visit Provider Physician Assistant Medical
DX: R60.0 Localized edema (principal)
CPT/HCPCS: 80048; 80061; 84443; 85025

== ENCOUNTER 2022-07-13 00:32 | Outpatient (CLI) | payer OTHER, SELFPAY ==
--- NOTE | 2022-07-13 | DI.RAD_ITS ---
Exam(s) XR KNEE RT 4V AP,LAT,MARILYN,PAT EXAM: XR KNEE RT 4V AP,LAT,MARILYN,PAT CLINICAL HISTORY: RT KNEE PAIN, [id number]. TECHNIQUE: 2D digital imaging was performed of the right knee. Four views obtained. Merchant, AP, la teral and PA tunnel views were obtained. COMPARISON: None. FINDINGS: BONES: No acute fracture is present. No bony destructive lesion is seen. There is an enthesophyte at the superior patella. JOINTS: The knee is normally aligned. No joint effusion is seen. SOFT TISSUE: Normal. IMPRESSION: Unremarkable radiographs of the right knee. DATA REPOSITORY: RADIATION DOSE DELIVERED:
== END 2022-07-13 00:52 ==
PROVIDERS: PCP Physician Assistant Medical; Visit Provider Physician Assistant Medical
DX: M25.561 Pain in right knee (principal)
CPT/HCPCS: 73564

== ENCOUNTER 2022-09-19 01:40 | Outpatient (CLI) | payer OTHER, SELFPAY ==
--- NOTE | 2022-09-19 06:45 | DI.MRI_ITS ---
Exam(s) MR LOWER JOINT RT WO EXAM: MR LOWER JOINT RT WO CLINICAL HISTORY: R KNEE PAIN,internal derangement, m23.91. TECHNIQUE: Multiplanar multisequence MRI was performed. COMPARISON: CR XR KNEE RT 4V AP,LAT,MARILYN,PAT from 07/13/2022 FINDINGS: BONES: There is no fracture or contusion pattern. JOINTS: There is mild thinning of the articular cartilage overlying the patella. The articular carti rodrigo is otherwise unremarkable. No effusion is present. TENDONS: Extensor mechanism: Unremarkable. Medial retinaculum: Unremarkable. Lateral retinaculum: Unremarkable. Popliteus: Unremarkable. MUSCLES: Unremarkable. MENISCI: There does appear to be mild degenerative signal in the posterior horn the medial meniscus. No evidence of a tear. The lateral meniscus is unremarkable. SOFT TISSUES: Unremarkable. LIGAMENTS: Anterior Cruciate: Unremarkable. Posterior Cruciate: Unremarkable. Medial Collateral:Unremarkable. Lateral Collateral: Unremarkable. OTHER: IMPRESSION: 1. No evidence of a meniscal or ligament tear. 2. Mild thinning of the articular cartilage overlying the patella. DATA REPOSITORY:
== END 2022-09-19 02:00 ==
PROVIDERS: PCP Physician Assistant Medical; Visit Provider Student in an Organized Health Care Education/Training Program
DX: M23.8X1 Other internal derangements of right knee; M25.561 Pain in right knee; M94.8X6 Other specified disorders of cartilage, lower leg
CPT/HCPCS: 73721

== ENCOUNTER 2023-04-26 08:00 | Day surgery (SDC) | payer OTHER, SELFPAY ==
--- NOTE | 2023-04-25 21:47 | W.COLOREPORT ---
Date of service: 04/26/23 Time of Service: 10:01 Colonoscopy Report Date of procedure: 04/26/23 Pre-op diagnosis general: CRC screening/Hx of chronic diarrhea/Daughter UC+ Post-op diagnosis procedure note: other (Polyps) Surgeon: Jenna Swenson Anesthesia Type: General:No Airway Estimated blood loss (mL): 2 Pathology: other (polyps) Complications: None Disposition: same day Prep: Miralax/Dulcolax Retraction Time: 22 Procedure Description: After informed consent was obtained the patient was taken to the procedure room and placed in a left decubitous position. Monitors were applied and a time out was done. The patients name, date of , procedure, allergies to medications and metal in their body was reviewed. The patient was then sedated. Once sedated and comfortable a rectal exam was done. External exam was normal. Internal exam revealed a normal sphincter tone and no palpable masses. The scope was then introduced and retrofelexed. Grade 1 internal hemorrhoids were identified. The scope was then advanced to the cecum without difficulty. The TI and appendiceal orifice were identified. The prep was BBPS 3 in all segments for a total of 9. The scope was then slowly retracted over 22 minutes back into the rectum. She had x2 .75 cm flat polyps. One is at 90 cm and one is at 70 cm. These are removed with a cold biting forcep. There are no diverticula visualized. The mucosa appears pink and healthy with a normal vascular pattern. The patient does have a history of diarrhea and her daughter has ulcerative colitis. Biopsies are taken of the terminal ileum, ileocecal valve, 80 cm / 60 cm/40 cm in the rectum. All specimens are retrieved and no bleeding is noted. The scope was removed and the patient was woken up and taken back to Same day surgery in stable condition. The patient tolerated the procedure well and there were no immediate complications. Follow up: The patient should follow up in 5year, path pending unless they develop changes in bowel habits or other new gastrointestinal complaints.
--- NOTE | 2023-04-25 21:48 | PDOC.DSDIS_ITS ---
Date of service: 04/26/23 Time of Service: 10:03 Discharge Plan Disposition Patient Disposition: Home Condition: Good Discharge Details Reason For Visit: colon scope Attending Provider: Jenna Swenson Primary Care Provider: Candy Felix Home Meds and New Rx's Prescriptions: Continued bupropion HCl [Wellbutrin SR] 100 mg tablet sustained-release 12 hr 100 mg PO DAILY diazepam [Valium] 5 mg tablet 5 mg PO ONCE PRN (Reason: sleep) Qty: 1 0RF Rx Instructions: take prior to procedure acetylcysteine [NAC] 600 mg capsule 600 mg PO BID diazepam 5 mg tablet 10 mg PO QHS PRN escitalopram oxalate [Lexapro] 20 mg tablet 20 mg PO DAILY AM Discontinued polyethylene glycol 3350 17 gram/dose powder 238 g PO ONCE Qty: 238 0RF Rx Instructions: take per colonoscopy instructions bisacodyl [Dulcolax (bisacodyl)] 5 mg tablet,delayed release (DR/EC) 5 mg PO ONCE Qty: 4 0RF Rx Instructions: take per colonoscopy instructions Discharge Instructions Additional Instructions: DSU Colonoscopy Post- Op Instructions Instructions for Everyone who is given Anesthesia: For your safety, please do the following for the next twenty-four (24) hours: *Do Not operate a motor vehicle (car, truck, motorcycle, etc.) *Do Not drink alcoholic beverages or use any recreational drugs for the first 24 hours or while taking pain medications. The medications in your body may have a reaction that can be dangerous. *Do Not make any important decisions or sign any important papers. Findings: Colon polyps. Otherwise the colon appears normal Follow up: My office will send a letter in 2 to 3 weeks time with the results of the biopsies and when we want you to repeat the colonoscopy, most likely 5 to 7 years time. 1. No lifting over 20 pounds or strenuous activity for the first 24 hours after your procedure. After 24 hours there are no restrictions on your activity but you may feel fatigued for a few days. 2. After you arrive home you may have a light meal and return to your normal diet as you can tolerate it without feeling sick to your stomach. 3. You may have a bloated, gaseous feeling in your belly (abdomen) after a colonoscopy. Passing gas and belching will help. Walking or lying down on your left side with your knees flexed may relieve the discomfort. Call the office at [phone] (Office) or [phone] (Hospital) right away if you notice any of the following: a.Vomiting of blood or ?coffee ground stools?. b.Rectal bleeding 1Tbsp, blood clots or continuous bleeding. c.Severe belly (abdominal) pain. d.A hard distended belly (abdomen) and an inability to pass gas. 4. Please don?t expect to have a normal BM (bowel movement) for 2-3 days after y our procedure. 5. If there are questions regarding the findings of your procedure, please contact your doctor 6. If you are unable to contact your doctor with a problem, contact the hospital at [phone]. 7. Continue all your regular medications unless directed otherwise. I understand the above instructions and have no questions. Signature of Patient or Adult Escort Name of Responsible Adult Escort Signature of Nurse Date/Time Activity:: see above Diet:: see above Discharge Orders Discharge Orders: Discharge Order (Routine); Ordered 04/26/23 Ordered By: Jenna Swenson DS: Diagnosis Discharge Diagnosis (1) Sleep apnea: Status: Chronic (2) Neurocardiogenic pre-syncope: Status: Chronic (3) Ventral hernia: Status: Chronic (4) Cerebral palsy: (5) BENNY (obstructive sleep apnea): (6) PVC (premature ventricular contraction): (7) Hiatal hernia: (8) Chronic diarrhea: Status: Acute (9) Family history of ulcerative colitis: Status: Acute Asessment and Plan: The patient is seen and examined after their colonoscopy.? The patient has been able to pass gas.? They are not having abdominal pain.? They have been able to tolerate liquids and a snack.? They do not have any nausea or vomiting.? They are not having any chest pain or shortness of breath.??? They are not having any rectal bleeding. Their vital signs have been stable-see nursing notes. We discussed findings during their colonoscopy, and any biopsies that were done/polyps that were removed. The patient will be sent a letter with any biopsy results, and when to repeat the colonoscopy.-see discharge instructions. Patient was given explicit instructions to follow-up regarding colonoscopy-refer to discharge instructions.? We reviewed resumption of medications. Patient verbalized understanding and discharged in stable and satisfactory condi tion- See nursing notes. (10) History of colon polyps: Status: Acute
[2023-04-26 08:05] VITALS: BP 133/84; PULSE 91; RESP 20; TEMP 36.2; O2SAT 97
[2023-04-26] MEDS: Lactated Ringers 1,000 ML 80 ML IV (08:40)
--- NOTE | 2023-04-26 08:45 | W.ANESPRE ---
General Info Date of Service Date Performed: 04/26/23 Height: 5 ft 2 in Weight: 102.1 kg Body Mass Index (BMI): 41.1 Surgical Procedure: Operation Date: 04/26/23 09:05 Proposed Procedure Side Surgeon poppy Swenson, DO Meds Allergies and Home Medications Allergies Allergy/AdvReac Type Severity Reaction Status Date / Time amoxicillin Allergy Intermediate Hives Unverified 04/26/23 08:14 Penicillins Allergy Intermediate rash Verified 04/26/23 08:14 codeine [Codeine] AdvReac Intermediate Nausea Unverified 04/26/23 08:14 zolpidem tartrate AdvReac Intermediate Mood Unverified 04/26/23 08:14 [From Ambien] tetracycline [Tetracycline] AdvReac Mild thrush Unverified 04/26/23 08:14 Home Medication Medication Instructions Recorded acetylcysteine 600 mg capsule (NAC) 600 mg PO BID 08/01/22 escitalopram oxalate 20 mg tablet 20 mg PO DAILY AM 08/01/22 (Lexapro) diazepam 5 mg tablet 10 mg PO QHS PRN 01/14/23 bupropion HCl 100 mg tablet,12 hr 100 mg PO DAILY 04/11/23 sustained-release (Wellbutrin SR) diazepam 5 mg tablet (Valium) 5 mg PO ONCE PRN sleep #1 tab 04/11/23 Current Visit Medications: Current Medications Generic Name Dose Route Start Last Admin Trade Name Freq PRN Reason Stop Dose Admin Hyoscyamine Sulfate 0.125 mg 04/26/23 08:29 Hyoscyamine 0.125 Mg Sl/Oral/Chew SL 05/26/23 08:28 DIRECTED PRN Ringer's Solution 1,000 mls @ 80 mls/hr 04/26/23 06:00 04/26/23 08:40 IV 05/25/23 23:59 80 mls/hr INFUSION TEODORO Administration IV Miscellaneous Supplies 1 each 04/26/23 06:00 Iv Access IV 05/25/23 23:59 DIRECTED TEODORO Ondansetron HCl 4 mg 04/26/23 08:29 Ondansetron 4 Mg/2 Ml Vial IVP 05/26/23 08:28 Q4H PRN PRN Nausea / Vomiting Sodium Chloride 0 ml 04/26/23 06:00 Normal Saline Flush 10 Ml Syr IV 05/25/23 23:59 PRN PRN Sodium Chloride 0 ml 04/26/23 06:00 Normal Saline 10 Ml Vial IJ 05/25/23 23:59 DIRECTED PRN Sterile Water 0 ml 04/26/23 06:00 Water,Injection,Sterile 10 Ml Vial IJ 05/25/23 23:59 DIRECTED PRN PFSH Active Problems Active Problems: Problem Status Onset Code Family history of ulcerative colitis Z83.79 Chronic diarrhea K52.9 Acute medial meniscus tear of right knee S83.241A Chondromalacia patellae, right knee M22.41 Left leg swelling M79.89 Pain of left calf M79.662 Left leg swelling M79.89 Acute viral syndrome B34.9 Spell of abnormal behavior R46.89 Migraine headache without aura G43.009 Sleep apnea 12/24/16 G47.30 Neurocardiogenic pre-syncope 10/25/16 R55 Heart palpitations 09/20/16 R00.2 Depression with anxiety 05/15/17 F41.8 Cerebral palsy, hemiplegic 10/01/16 G80.8 Carpal tunnel syndrome of left wrist 10/01/16 G56.02 BMI 40.0-44.9, adult 09/20/16 Z68.41 Abnormal uterine bleeding 09/20/16 N93.9 Rotator cuff arthropathy of left shoulder M12.812 Anxiety F41.9 Adrenal nodule Ventral hernia K43.9 Medical History Medical History PVC (premature ventricular contraction) BENNY (obstructive sleep apnea) Cerebral palsy (R) Side Syncope Migraine Panic disorder Marital problem Edema of both ankles PMDD (premenstrual dysphoric disorder) Learning difficulty Hiatal hernia Small hernia noted as an incidental finding at the time of abdominal CT scan on 03/12/2017. Anxiety and depression Surgical History Surgical History Ligation of fallopian tube Vaginal hysterectomy (12/13/16) LAVH with ovarian conservation. [facility] Endometrial Ablation (~2005) Novasure Dilation and curettage Cholecystectomy Tobacco Smoking/Tobacco Use Status: Never Alcohol Alcohol Intake: current Alcohol intake frequency: holidays/special occasions only Substance Use Substance use: Never Substance use type: does not use Vital Signs and Lab Results Vital Signs Most Recent Vital Signs in EMR: Most Recent Vital Signs Temp Pulse Resp BP Pulse Ox 36.2 C L 91 H 20 133/84 97 04/26/23 08:05 04/26/23 08:05 04/26/23 08:05 04/26/23 08:05 04/26/23 08:05 Lab Results Blood Type / Crossmatch: No Data to Display Complete Blood Count: No Data to Display Complete Metabolic Panel: No Data to Display Liver Function Panel: No Data to Display Coagulation Panel: No Data to Display Cardiac Panel: No Data to Display Arterial Blood Gas: No Data to Display Venous Blood Gas: No Data to Display Pancreas Panel: No Data to Display Thyroid Panel: No Data to Display Infectious Disease: No Data to Display Blood Cultures: No Data to Display Toxicology Panel: No Data to Display Panel: No Data to Display Anesthesia Assessment and Plan Anesthesia History Personal History: No History of Anesthesia Complications Family History: No Family History of Anesthesia Complications Exercise Tolerance Exercise Tolerance: Metabolic Equivalents>4 Pertinent Negatives Pertinent Negatives: No Symptoms of GERD, No Major Cardiovascular Symptoms or Complaints and No Major Pulmonary Symptoms or Complaints Cardiac & Pulmonary Exam Cardiac Exam: Normal S1/S2 Heart Sounds Pulmonary Exam: Clear Bilateral Breath Sounds Cardiac and Pulmonary Comment:: Sleep apnea Implantable Cardiac Device Does patient have a Pacemaker or an ICD?: No Airway Exam Known Difficult Airway: No Mallampati Class: 3 Mouth Opening: Normal (> 3cm) Thyromental Distance: Greater than 3 cm Neck Range of Motion: Full ROM Neck Circumference: Normal Teeth Condition: Normal Dentition (prominent incisors) ASA Classification ASA Score: ASA 2 Emergency Case?: No NPO Status NPO Status: NPO Clears >2 hours, Solids >8 hours Status Status: History of Hysterectomy Anesthesia Plan Resuscitation Status: Full Code Anesthesia Technique: General Anesthesia Airway Planned: Natural Airway Monitors Used: Standard Monitors
[2023-04-26 09:04] VITALS: BMI 41.1
--- NOTE | 2023-04-26 09:23 | BOWEL_PTH ---
PATIENT: Rosa Posadas LOC: [facility] U#:[id number] AGE/SX: 52/F ROOM: RE04/26/[address]: Jenna Swenson : 1970 BED: DIS: 04/26/2023 SPEC #: [id number] RECD: 04/26/23 12:46 STATUS: [facility] #: [id number] ROYCE: 04/26/23 09:[address]: Jenna Swenson DEPT: Surgical Specimen RECD BY: Omaira Lopez ENTERED: 04/26/23 12:50 SP TYPE: Bowel OTHR DR: Candy Felix Tissues: 1 - BIOPSY BOWEL 2 - BIOPSY BOWEL 3 - BIOPSY BOWEL 4 - BIOPSY BOWEL 5 - BIOPSY BOWEL 6 - BIOPSY BOWEL 7 - BIOPSY BOWEL 8 - BIOPSY BOWEL Procedures: GROSS AND MICRO LEVEL 4 Comments: [id number]
[2023-04-26 09:52] VITALS: BP 118/79; PULSE 83; RESP 18; TEMP 36.6; O2SAT 96
--- NOTE | 2023-04-26 10:16 | W.ANESPOSTOP ---
Postoperative Evaluation Date, Time and Location Date Performed: 04/26/23 Time Performed: 10:11 Patient Location: Day Surgery Unit Vital Signs Most Recent Imported Vital Signs: Most Recent Vital Signs Temp Pulse Resp BP Pulse Ox 36.6 C 83 18 118/79 96 04/26/23 09:52 04/26/23 09:52 04/26/23 09:52 04/26/23 09:52 04/26/23 09:52 Pain Score Most Recent Pain Score: Most Recent Pain Score Pain Level 0 04/26/23 09:52 Assessment Mental Status: Awake (Alert & Oriented to Patient Baseline) Airway and Respiratory Function: Patent airway with normal (patient baseline) respiratory exam Cardiovascular Function: Hemodynamically Stable Hydration Status: Adequately Hydrated Nausea & Vomiting: No Nausea or Vomiting Pain: Pt. Denies Any Pain Peripheral Nerve Block: Patient did not receive a nerve block
[2023-04-26 10:22] VITALS: BP 143/90; PULSE 79; TEMP 36.4; O2SAT 100
== END 2023-04-26 10:45 | disposition home or self-care (01) ==
LOC: SUR 08:01
PROVIDERS: PCP Physician Assistant Medical; Visit Provider Surgery
PROC: 0DJD8ZZ Inspection of Lower Intestinal Tract, Via Natural or Artificial Opening Endoscopic (ICD-10-PCS; CPT 45378; principal; 2023-04-26 09:00)
DX: Z12.11 Encounter for screening for malignant neoplasm of colon (principal); D12.3 Benign neoplasm of transverse colon; K43.9 Ventral hernia without obstruction or gangrene; K44.9 Diaphragmatic hernia without obstruction or gangrene; Z86.010 Personal history of colon polyps; Z83.79 Family history of other diseases of the digestive system
CPT/HCPCS: 45380; 88305; J2001; J2405

== ENCOUNTER 2023-08-27 08:47 | Outpatient (REF) | payer OTHER, SELFPAY ==
[2023-08-27 15:35] LABS: BUN 18 mg/dL (7-18); CREATININE 0.8 mg/dL (0.55-1.02); Calcium 10.1 mg/dL (8.5-10.1); Calculated LDL 86 mg/dL (<100); Chloride 103 mmol/L (98-107); Cholesterol 176 mg/dL (<200); Estimated GFR 89.71 (mL/min/1.73m2); Glucose 100 mg/dL (74-106); HDL Cholesterol 63 mg/dL (40-60); Potassium 3.9 mmol/L (3.5-5.1); Sodium 139 mmol/L (136-145); Triglyceride 137 mg/dL (<150)
[2023-08-27 15:44] LABS: Hemoglobin A1C 5.4 % (<5.7)
== END 2023-08-27 08:48 | disposition home or self-care (01) ==
LOC: NCHCN 08:47
PROVIDERS: PCP Physician Assistant Medical; Referring Provider Physician Assistant Medical; Visit Provider Physician Assistant Medical
DX: R60.0 Localized edema (principal); E66.8 Other obesity; Z13.1 Encounter for screening for diabetes mellitus
CPT/HCPCS: 80048; 80061; 83036

== ENCOUNTER 2023-11-01 15:19 | Outpatient (REF) | payer OTHER, SELFPAY ==
[2023-11-01 19:11] LABS: ALT 24 U/L (14-59); AST 13 U/L (15-37); Albumin 3.9 g/dL (3.4-5.0); Alkaline Phosphatase 86 U/L (46-116); Anion Gap 9.7 mmol/L (3-11); BUN 17 mg/dL (7-18); Bilirubin, Total 0.2 mg/dL (0.2-1.0); CO2 25.3 mmol/L (21.0-32.0); CREATININE 0.8 mg/dL (0.55-1.02); Calcium 9.9 mg/dL (8.5-10.1); Chloride 107 mmol/L (98-107); Estimated GFR 89.15 (mL/min/1.73m2); Glucose 82 mg/dL (74-106); Potassium 4.4 mmol/L (3.5-5.1); Sodium 142 mmol/L (136-145); Total Protein 7.6 g/dL (6.4-8.2)
== END 2023-11-01 15:20 | disposition home or self-care (01) ==
LOC: NCHCN 15:19
PROVIDERS: PCP Physician Assistant Medical; Visit Provider Physician Assistant Medical
DX: R60.0 Localized edema (principal)
CPT/HCPCS: 80053

== ENCOUNTER 2024-07-26 23:26 | Emergency (ER) | payer OTHER, SELFPAY ==
--- NOTE | 2024-07-26 23:00 | RT.EKG_ITS ---
APPROVED REPORT Exam: Resting ECG Reason for Exam: overdose Patient Location: E HR:91 bpm ECG Measurements Heart Rate 91 AXIS OK 167 P 19 QRSd 75 QRS 12 QT 358 T 66 QTc 441 Conclusion Sinus rhythm...normal P axis, V-rate 60- 99 Low voltage, precordial leads...precordial leads <1.0mV Appropriate intervals. No ST segment or T wave abnormalities to suggest occlusive PR
[2024-07-26 23:28] VITALS: BP 178/78; PULSE 95; RESP 18; TEMP 36.5; O2SAT 98
[2024-07-26 23:37] VITALS: RESP 18
--- NOTE | 2024-07-26 23:53 | ED.GENADUL_ITS ---
Discharge Plan Discharge Details Chief Complaint: OD/Poison Primary Care Provider: Candy Felix ED Provider: Stacey Barlow Home Meds and New Rx's Prescriptions: No Action bupropion HCl [Wellbutrin SR] 100 mg tablet sustained-release 12 hr 100 mg PO DAILY diazepam [Valium] 5 mg tablet 5 mg PO ONCE PRN (Reason: sleep) Qty: 1 0RF Rx Instructions: take prior to procedure acetylcysteine [NAC] 600 mg capsule 600 mg PO BID escitalopram oxalate [Lexapro] 20 mg tablet 20 mg PO DAILY AM trazodone 50 mg tablet 50 mg PO QHS PRN Patient Comments: TAKE 1 TABLET BY MOUTH AT BEDTIME NEEDED FOR SLEEP HPI General Mode of arrival: EMS . Date/Time Provider Initiated Documentation: 07/26/24 23:38 . Limitations to Documentation: no limitations . Information obtained by: patient and EMS . HPI Narrative: 53yo F with hx depression, anxiety, R cerebral palsy, presenting via EMS for intentional overdose. Reports that she took 8 50mg trazodone as an attempt to fall asleep and not wake up. Friends call 911. She has trazodone available prn for sleep and occasionally takes 1 50mg tablet for this purpose. Taking her other psych meds as prescribed. Denies prior suicide attempts or psychiatric hospitalizations. Has been having stressful situations with her children and grandchildren which have lead her feeling overall despair- reports that jonhight her son told her that she has to stop seeing her fiancee or she won't be able to see her grandchildren anymore. Since taking the trazodone tonight she has felt 'woozy' and unsteady on her feet, generally fatigued and 'foggy'. No presyncope, chest pain, shortness of breath. Otherwise in her usual state of health with no fevers, chills, rash, nausea, vomiting, abdominal pain, or other concerns. Related Data Home Medications ?Medication ?Instructions ?Recorded ?Confirmed acetylcysteine 600 mg capsule (NAC) 600 mg PO BID 08/01/22 07/26/24 escitalopram oxalate 20 mg tablet 20 mg PO DAILY AM 08/01/22 07/26/24 (Lexapro) bupropion HCl 100 mg tablet,12 hr 100 mg PO DAILY 10/19/23 02/02/25 sustained-release (Wellbutrin SR) diazepam 5 mg tablet (Valium) 5 mg PO ONCE PRN sleep #1 tab 04/11/23 07/27/24 trazodone 50 mg tablet 50 mg PO QHS PRN 07/26/24 07/26/24 Previous Rx's ?Medication ?Instructions ?Recorded diazepam 5 mg tablet (Valium) 5 mg PO ONCE PRN sleep #1 tab 04/11/23 Allergies Allergy/AdvReac Type Severity Reaction Status Date / Time amoxicillin Allergy Intermediate Hives Unverified 07/26/24 23:48 Penicillins Allergy Intermediate rash Verified 07/26/24 23:48 codeine (Codeine) AdvReac Intermediate Nausea Unverified 07/26/24 23:48 zolpidem tartrate (From AdvReac Intermediate Mood Unverified 07/26/24 23:48 Ambien) tetracycline (Tetracycline) AdvReac Mild thrush Unverified 07/26/24 23:48 General Stated Complaint: OD/Poison PAULINA: 2 Review of Systems Narrative: see HPI Exam Narrative Exam Narrative: General: Alert, well appearing, well nourished, in no acute distress. Head: Normocephalic, atraumatic Neck: Trachea midline, ?Neck supple. ENT: ?MMM.? No oropharygeal lesions or exudate. Cardiac: ?RRR, no murmurs appreciated Resp: No respiratory distress. CTAB. Abd: ?Soft, non-distended, nontender : ?No suprapubic tenderness. No CVA tenderness. Extremities: ?No deformities.? No peripheral edema. Psych: Calm, cooperative.? Well groomed.? Mood sad, affect congruent.? Speech with soft and slow with normal rythym and tone. Linear and goal directed.? +SI. Denies HI/AH/VH. ? Does not appear to be responding to internal stimuli. Neuro: ? GCS 15.? PERRL.? EOMI.? Fluent speech, no dysarthria. Moves all extremities freely against gravity. Sensation intact to light touch and symmetric multiple dermatomes including upper and lower extremities 2/4 achilles & patellar, no clonus. Normal stance.? No truncal ataxia. Steady gait with equal normal steps Course Vital Signs Vital signs: Vital Signs Temperature 36.5 C 07/26/24 23:28 Pulse 95 H 07/26/24 23:28 Respiratory Rate 18 07/26/24 23:28 Blood Pressure 178/78 H 07/26/24 23:28 Pulse Oximetry 98 07/26/24 23:28 Temperature 36.5 C 07/26/24 23:28 Temperature Source Temporal Artery Scan 07/26/24 23:28 Pulse 95 H 07/26/24 23:28 Respiratory Rate 18 07/26/24 23:37 Respiratory Effort Normal, Non-Labored 07/26/24 23:37 Respiratory Depth Normal 07/26/24 23:37 Respiratory Pattern Normal 07/26/24 23:37 Blood Pressure 178/78 H 07/26/24 23:28 Blood Pressure Position Sitting 07/26/24 23:28 Pulse Oximetry 98 07/26/24 23:28 Oxygen Delivery Method Room Air 07/26/24 23:28 Oxygen Flow Rate 0 07/26/24 23:28 Pain Level 0 07/26/24 23:28 Medical Decision Making 53yo F with hx depression, anxiety, R cerebral palsy, presenting via EMS for intentional overdose. Reports that she took eight 50mg trazodone around 10pm as an attempt to fall asleep and not wake up; friends call 911. Prescription bottle brought with patient; trazodone 50mg tablets, last filled 07/16/24, listed quantity of 30 on label however bottle at this time continues 79.5 tablets. Currently feeling 'woozy' and unsteady on her feet, generally fatigued and 'foggy'. Hypertensive on arrival, vital signs otherwise reassuring. Benign physical and neurologic exam. No clear toxidrome present. - SR, appropriate intervals. No ST segment or T wave abnormalities to suggest occlusive NV. -Orthostatic vital signs with borderline drop in SBP, reassuring HR. Pt not significantly symptomatic with this. -Labs reviewed as below, CBC reassuring with mild leukocytsois at 11.5 (non- specific) and no anemia, CMP with no actionable abnormalities, Mg normal, VBG reassuring, lactate normal, serum etoh/acetiminophen/salicylate negative. Trazodone level sent out. 4 hour acetaminophen level also negative. -Discussed with poison control; advised observation until 0800, if back to baseline at that point would be medically cleared. If continue symptoms, continue to obs until back to baseline. On reassessment pt appears to be sleeping comfortably. Will be signed out to oncoming physician; plan remains as above. Quality:SDOH Health Related Social Needs: Health related social needs feeling lonely/isolated (Z 60.8) PFSH All Active Problems (Updated 06/13/23 @ 10:28 by Jie Rubio RN) History of colon polyps (Acute ~04/2023) tubular adenoma Family history of ulcerative colitis (Acute) Chronic diarrhea (Acute) Acute medial meniscus tear of right knee (Acute) Chondromalacia patellae, right knee (Acute) Left leg swelling (Acute) Pain of left calf (Acute) Left leg swelling (Acute) Acute viral syndrome (Acute) Spell of abnormal behavior (Chronic) Migraine headache without aura (Chronic) Sleep apnea (Chronic 12/24/16) 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) Heart palpitations (Chronic 09/20/16) Neg Holter monitor. Cut back on caffeine, started Propranol. Sx improved. Depression with anxiety (Chronic 05/15/17) Cerebral palsy, hemiplegic (Chronic 10/01/16) Carpal tunnel syndrome of left wrist (Chronic 10/01/16) BMI 40.0-44.9, adult (Chronic 09/20/16) Abnormal uterine bleeding (Chronic 09/20/16) Nl SHG. Nl EMBx. Continued spotting with Norethindrone. Rotator cuff arthropathy of left shoulder (Chronic) Anxiety (Chronic) Adrenal nodule (Chronic) Incidental finding at the time of abdominal CT scan. Imaging strongly suggestive of benign adenoma. Ventral hernia (Chronic) Medical History (Updated 06/13/23 @ 10:28 by Jie Rubio RN) PVC (premature ventricular contraction) BENNY (obstructive sleep apnea) Cerebral palsy (R) Side Syncope Migraine Panic disorder Marital problem Edema of both ankles PMDD (premenstrual dysphoric disorder) Learning difficulty Hiatal hernia Small hernia noted as an incidental finding at the time of abdominal CT scan on 03/12/2017. Anxiety and depression Surgical History (Updated 04/29/23 @ 14:33 by Jayla Brush) History of colonoscopy (~04/2023) Ligation of fallopian tube Vaginal hysterectomy (12/13/16) LAVH with ovarian conservation. [facility] Endometrial Ablation (~2005) Novasure Dilation and curettage Cholecystectomy Family History Mother Diabetes Asthma Social History Smoking/Tobacco Use Status: Never Smoking risk assessment performed?: Yes Alcohol Intake: current Alcohol Intake frequency: holidays/special occasions only Drug use: Never Substance use type: does not use Housing: house Number of Children: 2 current occupation: [employer] Current gender identity: female Do you feel safe at home: Yes Do you feel safe in your relationship?: Yes
[2024-07-27 00:20] LABS: *AMPHETAMINES SCREEN URINE Negative (Negative); *BARBITURATES SCREEN URINE Negative (Negative); *BENZODIAZEPINES SCREEN URINE Negative (Negative); Cannabinoids THC Negative (Negative); Cocaine Screen,Urine Negative (Negative); METHADONE URINE SCREEN Negative (Negative); OPIATES URINE SCREEN Negative (Negative)
[2024-07-27 00:26] LABS: Tricyclic Antidepressants Negative (Negative)
--- NOTE | 2024-07-27 00:33 | PDOC.MHCN_ITS ---
Date of service: 07/27/24 Time of Service: 00:27 PHQ-9 Over the last 2 weeks, how often have you been bothered by any of the following problems? 1. Little interest or pleasure in doing things: not at all 2. Feeling down, depressed, or hopeless: more than half the days 3. Trouble falling or staying asleep, or sleeping too much: more than half the days 4. Feeling tired or having little energy: more than half the days 5. Poor appetite or overeating: not at all 6. Feeling bad about yourself - or that you are a failure or have let yourself and your family down: more than half the days 7. Trouble concentrating on things, such as reading the newspaper or watching television: not at all 8. Moving or speaking so slowly that other people could have noticed? - Or the opposite - being so fidgety or restless that you have been moving around a lot more than usual: not at all 9. Thoughts that you would be better off or of hurting yourself in some way: several days Total score: 9 Source: Developed by Drs. Jony Child, Joanne Ybarra, Feng Ching and colleagues, with an educational mercedes from [employer] Suicide Severity Rate CSSRS Have you wished you were or wished you could go to sleep and not wake up?: Yes Have you actually had any thoughts of killing yourself?: Yes CSSRS2 Have you been thinking about how you might do this?: No Have you had these thoughts and had some intention of acting on them?: No Have you started to work out or worked out the details of how to kill yourself? Do you intend to carry out this plan?: No CSSRS3 Have you ever done anything, started to do anything or prepared to do anything to end your life?: No CSSRS4 Was this within the past three months?: No Screening Score Total Score: 4 Screening: Positive Mental Health Emergency Note Release [facility] release signed:: No Reason for Visit Rosa is at [facility] due to SI In the last 2 weeks has the pt presented for ES prior to today?: Unknown Client Information Client is: New Well Housed: Yes Non Suicidal Self Injury Current: No History: No Safety Risk/Harm to Self or Others Current Ideation to Harm Self or Others: Yes to self. Intent: no, has no intent. Plan: no.does not have a plan. History of suicide attempt: No history of suicide attempt reported Risk: Does risk to harm exist?: No Risk: Low Risk Duty to warn indicated: No Asssessment/Mental Status Appearance: Unremarkable Attitude: Cooperative Behavior: Unremarkable Speech: Normal Affect: Cogruent with mood Mood: Sad, Stressed, Depressed and Anxious Thought process: Unremarkable Hallucinations: No evidence Delusions: No evidence Attention: Unremarkable Perception: Not impaired Orientation: Fully orientated Memory: Intact Insight: Poor Judgement: Poor Neurovegetative Symptoms Sleep: Decrease Appetitie: No change Interests: Decrease Energy: Decrease Libido: Not applicable Substance Use: Do you use nicotine?: No Have you used substances in the last 7 days?: No Additional Issues: Assaultive/Threatening Behavior: No Medical Concerns: No Client engaged in active self harm w/weapon: No Threatening to run away: No Child reported abuse/neglect: No Voluntarily presenting for services: Yes Domestic violence is a concern: No Extreme Psychosis or extreme behavior is present: No Impression Rosa presents to this account underwriter in paper scrubs sitting on her hospital bed. Rosa reports she is doing okay but she is tired of having to chose between her boyfriend and her granddaughters. Rosa reports that her son told her she could not see her granddaughters as long as she was with her boyfriend. Rosa and her boyfriend have been together for 5 years now. Rosa reports that she cannot do it anymore and everything feels like a lot the last few months. Rosa reports that her mood is sappy and emotional., Her sleep is crappy unless she takes trazodone and that her appetite is alright. Rosa reports that she used to see Dustin at [facility] but has not seen him in 1-2 months. Rosa was willing to engage in a safety plan that included beginning therapy, checking in with this account underwriter, and locking up medications. This account underwriter spoke to Stacey the provider who reported concerns for Rosa including the fact she was not deemed medically cleared due to the medications she took. Stacey apologized for having someone call already but that she was not supposed to be seen yet - they will call back once she is medically cleared. Per T[employer] review it looks like this could be the morning.? Prior to this conversation it was unknown that Rosa had taken medications as it was not repotted to this account underwriter by [facility] or client. this account underwriter spoke to Rosa again and she reported she thought this account underwriter knew. This account underwriter was informed after both conversations with Rosa that she was not medically cleared and she would have to have a new assessment in the morning Plan/Disposition Recommended Disposition: Other. Plan: Client will be assessed once medically cleared Person reported agreement to plan: Yes Reports/communication Outcome discussed with: ED/Personnel
[2024-07-27 00:47] LABS: BE (Venous) 0 mmol/L (-2-3); HCO3 (Venous) 26 mmol/L (23-28); Lactate 1.6 mmol/L (<or=2.0); O2 Sat (Venous) 68 %; TCO2 (Venous) 24 mmol/L (24-29); pCO2 (Venous) 48 mmHg (41-51); pH (Venous) 7.34 (7.31-7.41); pO2 (Venous) 37 mmHg
[2024-07-27 00:50] LABS: Abs Immature Grans 0.03 10^3/uL (0.0-0.06); Absolute Basophil Count 0.05 10^3/uL (0.0-0.2); Absolute Eosinophil Count 0.16 10^3/uL (0.0-0.7); Absolute Monocyte Count 0.52 10^3/uL (0.1-0.8); Absolute Neutrophil Count 6.34 10^3/uL (1.2-6.7); Basophils % 0.4 %; Eosinophils % 1.4 %; HCT 42.4 % (36.0-46.0); HGB 13.8 g/dL (11.2-15.7); Immature Grans % 0.3 %; Lymphocytes % 38.3 %; MCH 30.7 pg (27.0-33.0); MCHC 32.5 % (32.0-36.0); MCV 94 fL (80-95); MPV 9.4 fL (8.0-11.0); Monocytes % 4.5 %; Neutrophils % 55.1 %; Platelet Count 299 10^3/uL (130-400); RBC 4.49 10^6/uL (3.93-5.22); RDW 13.2 % (11.7-14.6); RDW-SD 45.5 fL
[2024-07-27 01:05] VITALS: BP 137/73; BP 146/69; BP 156/90; PULSE 85; PULSE 86; PULSE 87
[2024-07-27 01:05] LABS: ALT 41 U/L (14-59); AST 16 U/L (15-37); Alkaline Phosphatase 86 U/L (46-116); Anion Gap 6.8 mmol/L (3-11); BUN 15 mg/dL (7-18); Bilirubin, Total 0.34 mg/dL (0.2-1.0); CO2 29.2 mmol/L (21.0-32.0); CREATININE 0.9 mg/dL (0.55-1.02); Calcium 10.3 mg/dL (8.5-10.1); Chloride 105 mmol/L (98-107); Glucose 99 mg/dL (74-106); Magnesium 1.9 mg/dL (1.8-2.4); Potassium 4.1 mmol/L (3.5-5.1); Sodium 141 mmol/L (136-145); Total Protein 8.2 g/dL (6.4-8.2)
[2024-07-27 01:09] LABS: Salicylate < 2.8 mg/dL (<2.8)
[2024-07-27 01:10] LABS: Acetaminophen < 2 ug/mL (10-30)
[2024-07-27 01:13] LABS: ETHANOL BLOOD < 3.0 mg/dL (<10)
[2024-07-27 02:42] LABS: Acetaminophen < 2 ug/mL (10-30)
--- NOTE | 2024-07-27 07:58 | W.EDPROG ---
Date of service: 07/27/24 Time of Service: 07:59 Medical Decision Making Intentional OD on trazodone (400mg) as attempt to end her life. Medically cleared. Needs [facility]. Voluntary currently, likely meets involuntary criteria should she wish to leave. I spoke with Salvador from [facility] [employer]. She will have the patient assessed in the ED. I reordered this patient's home medications with the exception of diazepam. She has a regular diet on a safety tray. 12:30 pm I spoke to Manish from [facility]. He assessed the patient and developed a safety plan. I met with the patient. She was calm. She had no flight of ideas. No pressured speech. She felt comfortable with the safety plan. She does not own firearms at home. I advised that she should return to the emergency department if she feels unsafe with this plan. I reviewed the patient's labs. She is very mildly hypercalcemic. Negative acetaminophen and salicylate levels. Negative alcohol. Reassuring vital signs. Patient discharged with empiric trial of expectant outpatient management. Quality:SDOH Health Related Social Needs: Health related social needs feeling lonely/isolated (Z60.8) Discharge Plan Disposition Patient Disposition: Home Discharge Details Clinical Impression: Drug overdose, Intentional drug overdose Primary Care Provider: Candy Felix ED Provider: Servando Alatorre [place] Meds and New Rx's Prescriptions: Continued bupropion HCl [Wellbutrin SR] 100 mg tablet sustained-release 12 hr 100 mg PO DAILY diazepam [Valium] 5 mg tablet 5 mg PO ONCE PRN (Reason: sleep) Qty: 1 0RF Rx Instructions: take prior to procedure acetylcysteine [NAC] 600 mg capsule 600 mg PO BID escitalopram oxalate [Lexapro] 20 mg tablet 20 mg PO DAILY AM trazodone 50 mg tablet 50 mg PO QHS PRN Patient Comments: TAKE 1 TABLET BY MOUTH AT BEDTIME NEEDED FOR SLEEP Discharge Instructions Additional Instructions: You are seen in the emergency department for your medication overdose. You were screened by [facility] [employer] [facility] and given a safety plan. As we discussed if you do not feel comfortable with this plan or if you feel that you are going to harm your self again. Please return to the emergency department. Otherwise please take your medications as previously directed.
[2024-07-27] MEDS: buPROPion-CR 100 MG TABCR PO (09:02)
[2024-07-27] MEDS: Escitalopram 20 MG TAB PO (09:10)
[2024-07-27 09:58] VITALS: BP 122/73; PULSE 81; RESP 16; TEMP 36.5; O2SAT 95
--- OUTSIDE RECORDS SUMMARY | 2024-07-27 12:59 | XMS_ITS | Encounter Summary ---
Author Organization [facility] Address [facility] [place] [address] Care Team Providers Care Acupuncturist Name Role Phone Beatris Harry MD Primary Care Provider [phone] Encounter Details Date Type Department Care Team (Late st Contact Info) Description 10/15/2016 [place] [id number] Venancio Raygoza MD [facility] [place] [address] Social History Tobacco Use Types Packs/Day Years Used Date Smoking Tobacco: Never Assessed Sex and Gender Information Value Date Recorded Sex Assigned at Not on file Gender Identity Not on file Sexual Orientation Not on file documented as of this encounter Miscellaneous Notes * Telephone Encounter - Venancio Raygoza - 10/15/2016 4:54 PM EDT Images from the original note were not included. Telephone Triage Note Initial Contact Date: 10/15/16 Initial contact time: 1655h Referring Provider: Sondra Patient Location: [facility] Presenting Symptoms per OSH: Syncope. blackout, non-positional, randomly happens. No prodromal symptoms. No after symptoms, comes to very quickly. 6 second asystole while having peripheral placed, recovered without intervention. diaphoretic Past Medical History: Anxiety- on lexapro Pertinent Diagnostic Findings: Vitals: BP 147/79 HR 79 SaO2 RA. No orthostatics performed EKG : Troponin negative CXR: no failure Labs: WNL Holter: negative, placed for recurrent syncope OSH Interventions: None Plan: Seems like the patient had a vasovagal episode, with the placement of a PIV being the nidus of such. Reassuringly, no prolonged intervals on EKG. Recommended increasing fluid intake, salt intake. Canconsider EP studies (tilt table, vagolytics) as outpatient if recurrent documented in this encounter Plan of Treatment Not on file documented as of this encounter Visit Diagnoses Not on filedocumented in this encounter Care Teams Acupuncturist Relationship Specialty Start Date End Date Beatris Harry MD [address] [place] [address] PCP - General 02/12/14 documented as of this encounter
--- OUTSIDE RECORDS SUMMARY | 2024-07-27 12:59 | XMS_ITS | Clinical Summary ---
[place] [address] Care Team Providers Care Engine Turner Name Role Phone Beatris Harry MD Primary Care Provider [phone] Social History Tobacco Use Types Packs/Day Years Used Date Smoking Tobacco: Never Assessed Sex and Gender Information Value Date Recorded Sex Assigned at Not on file Gender Identity Not on file Sexual Orientation Not on file Plan of Treatment Health Maintenance Due Date Last Done Comments CT Colonography 1972 Colonoscopy 1972 Colorectal Cancer Screening 1972 FIT DNA 1972 FIT 1972 Sigmoidoscopy (10 year) with FIT yearly 1972 Sigmoidoscopy 1972 HIV screen 1990 Hepatitis C Screening 1990 Hepatitis B vaccine (0-59 yrs) (1) 10/13/1991 Tetanus/Diphtheria/Pertussis Vaccines (1 - Tdap) 10/12 HPV test 2002 PAP Smear 2002 Breast Cancer Share Decision Needed 2012 Breast Cancer screening 2012 Pneumoccocal Vaccine: 50+ (1 of 1 - PCV) 2022 Zoster vaccine (1 of 2) 2022 Covid-19 Vaccine (1 - 2023-25 season) 2024 Influenza (Flu) vaccine (1 o f 1 - Influenza standard series) 02/23/2024 Care Teams Engine Turner Relationship Specialty Start Date End Date Beatris Harry MD [address] [place], [place] [address] PCP - General 02/12/14
--- OUTSIDE RECORDS SUMMARY | 2024-07-27 12:59 | XMS_ITS | Encounter Summary ---
[place] [address] Care Team Providers Care Animal Trainer Name Role Phone Beatris Harry MD Primary Care Provider [phone] Encounter Details Date Type Department Care Team (Latest Contact Info) Description 01/04/2024 Travel Social History Tobacco Use Types Packs/Day Years Used Date Smoking Tobacco: Never Assessed Sex and Gender Information Value Date Recorded Sex Assigned at Not on file Gender Identity Not on file Sexual Orientation Not on file documented as of this encounter Plan of Treatment Not on file documented as of this encounter Visit Diagnoses Not on filedocumented in this encounter Care Teams Animal Trainer Relationship Specialty Start Date End Date Beatris Harry MD [address] [place] [address] PCP - General 02/12/14 documented as of this encounter
--- OUTSIDE RECORDS SUMMARY | 2024-07-27 12:59 | XMS_ITS | Encounter Summary ---
Author Organization [facility] Address [facility] [place] [address] Care Team Providers Care Putter In Name Role Phone Beatris Harry MD Primary Care Provider [phone] Reason for Visit * Audiology Exam (Routine) - Closed Specialty Diagnoses / Procedures Referred By Magdalena dominguez Referred To Contact Audiology Diagnoses Bilateral hearing loss, unspecified hearing loss type Sowmya Segura [address] [place] [address] [facility] Audiology [address] [place] [phone] Referral ID Status Reason Start Date Expiration Date V isits Requested Visits Authorized [id number] Closed Specialty Service Requested 12/23/2023 12/22/2024 1 1 Encounter Details Date Type Department Care Team (Latest Contact Info) Description 01/04/2024 11:00 AM EDT Office Visit Audiology at [address] [phone] Anna Mathew, PhD [facility] [place] [address] Sensorineural hearing loss, bilateral; Abnormal auditory perception, bilateral Social History Tobacco Use Types Packs/Day Years Used Date Smoking Tobacco: Never Assessed Sex and Gender Information Value Date Recorded Sex Assigned at Not on file Gender Identity Not on file Sexual Orientation Not on file documented as of this encounter Progress Notes * Anna Mathew, PhD - 01/04/2024 11:00 AM EDT AUDIOLOGY SECTION ADULT AUDIOLOGIC EVALUATION [place], [place] Rosa Posadas, 53 y.o., female was seen for an audiologic evaluation 01/04/2024. Referred by Beatris Harry MD Reason: Hearing loss Please refer to the Procedures tab in the EMR for history, impression, and recommendations. Anna Mathew, PhD Clinical Die Repairer [employer] [facility] [place] [address] ; documented in this encounter Plan of Treatment Not on file documented as of this encounter Procedures Procedure Name Priority Date/Time Associated Diagnosis Comments COMPREHENSIVE HEARING TEST Routine 01/04/2024 11:00 AM EDT documented in this encounter Results * Comprehensive hearing test (01/04/2024 11:00 AM EDT) 01/04/2024 11:0 0 AM EDT Narrative AUDBASE COMP - 01/04/2024 11:00 AM EDT Hearing thresholds are in normal to mild hearing loss range. Good word recognition scores. Moderate difficulty with binaural Quick Nptjpp-gp-Uamqb test. May consider a trial with bilateral hearing aids or assistive devices such as a TV device or Pocket Talker for stationary conversation with clients with low level voices. Communication strategies (gain/give attention, good distance and lighting, decrease background noise, rephrase in repetitions) Use of hearing protection if exposed to excessive sound levels. Audiologic re-evaluation in one year to monitor for progression of this identified hearing loss. Procedure Note Unknown - 01/04/2024 Hearing thresholds are in normal to mild hearing loss range. Good word recognition scores. Moderate difficulty with binaural CyebvIyhnep-ge-Ywmlt test. May consider a trial with bilateral hearing aids or assistive devices suchas a TV device or Pocket Talker for stationary conversation with clients with low levelvoices. Communication strategies (gain/give attention, good distance and lighting,decrease background noise, rephrase in repetitions) Use of hearing protection if exposed to excessive sound levels. Audiologic re-evaluation in one year to monitor for progression of thisidentified hearing loss. Anna Mathew PhD AUDIOLOGY SERVICES ORDERABLES AUDBASE COMP documented in this encounter Visit Diagnoses Diagnosis Sensorineural hearing loss, bilateral Abnormal auditory perception, bilateral documented in this encounter Care Teams Putter In Relationship Specialty Start Date End Date Beatris Harry MD [address] [place] [address] PCP - General 02/12/14 documented as of this encounter
--- OUTSIDE RECORDS SUMMARY | 2024-07-27 12:59 | XMS_ITS | Encounter Summary ---
Author Organization [facility] [place] [address] Care Team Providers Care Oxidation Engineer Name Role Phone Beatris Harry MD Primary Care Provider [phone] Reason for Referral * Audiology Exam (Routine) - Closed Specialty Diagnoses / Procedures Referred By Magdalena dominguez Referred To Contact Audiology Diagnoses Bilateral hearing loss, unspecified hearing loss type Sowmya Segura [address] [place] [address] [facility] [address] [place] [phone] Referral ID Status Reason Start Date Expiration Date V isits Requested Visits Authorized [id number] Closed Specialty Service Requested 12/23/2023 12/22/2024 1 1 Encounter Details Date Type Department Care Team (Latest Contact Info) Description 12/23/2023 Transcribe Orders eDH Incoming Referrals [phone] Sowmya Segura [address] [place], [place] [id number] Bilateral hearing loss, unspecified hearing loss type Social History Tobacco Use Types Packs/Day Years Used Date Smoking Tobacco: Never Assessed Sex and Gender Information Value Date Recorded Sex Assigned at Not on file Gender Identity Not on file Sexual Orientation Not on file documented as of this encounter Plan of Treatment Scheduled Referrals Name Type Priority Associated Diagnoses Orde r Schedule Referral to Audiology Outpatient Referral Routine Bilateral Hearing Loss, Unspecified Hearing Loss Type Ordered: 12/23/2023 documented as of this encounter Visit Diagnoses Diagnosis Bilateral hearing loss, unspecified hearing loss type documented in this encounter Care Teams Oxidation Engineer Relationship Specialty Start Date End Date Beatris Harry MD [address] [place] [address] PCP - General 02/12/14 documented as of this encounter
--- OUTSIDE RECORDS SUMMARY | 2024-07-27 12:59 | XMS_ITS | Encounter Summary ---
Author Organization [facility] Address [facility] [place] [address] Care Team Providers Care Pipeline Construction Inspector Name Role Phone Beatris Harry MD Primary Care Provider [phone] Encounter Details Date Type Department Care Team (Late st Contact Info) Description 10/15/2016 External [place] [address] Venancio Raygoza MD [facility] [place] [address] Social History Tobacco Use Types Packs/Day Years Used Date Smoking Tobacco: Never Assessed Sex and Gender Information Value Date Recorded Sex Assigned at Not on file Gender Identity Not on file Sexual Orientation Not on file documented as of this encounter Plan of Treatment Not on file documented as of this encounter Procedures Procedure Name Priority Date/Time Associated Diagnosis Comments ECG SCAN Routine 10/15/2016 documented in this encounter Results * Scan Doc: ECG (10/15/2016) Venancio Raygoza MD MEDIA MGR SCAN EXT O RDR/RSLT documented in this encounter Visit Diagnoses Not on filedocumented in this encounter Care Teams Pipeline Construction Inspector Relationship Specialty Start Date End Date Beatris Harry MD [address] [place] [address] PCP - General 02/12/14 documented as of this encounter
--- OUTSIDE RECORDS SUMMARY | 2024-07-27 13:00 | XMS_ITS | Clinical Summary ---
Author Organization [facility] Address [address] [place] [address] Care Team Providers Care Crop Or Grain Farmer Name Role Phone Brea Nieves MD Primary Care Provider [phone] Social History Tobacco Use Types Packs/Day Years Used Date Smoking Tobacco: Never Assessed Comments Unknown Sex and Gender Information Value Date Recorded Sex Assigned at Not on file Legal Sex Female 18:31 EST Gender Identity Not on file Sexual Orientation Not on file Plan of Treatment Health Maintenance Due Date Last Done Comments Hepatitis C Screen 1972 Hepatitis B Vaccine (1 of 3 - 19+ 3-dose series) 10/12 COVID-19 Vaccine ( season) 2024 Insurance [facility] Care Teams Crop Or Grain Farmer Relationship Specialty Start Date End Date Brea Nieves MD PCP - General 05/11/14
--- OUTSIDE RECORDS SUMMARY | 2024-07-27 13:00 | XMS_ITS | Encounter Summary ---
Author Organization [facility] Address [address] [place] [address] Care Team Providers Care Digital Sales Manager Name Role Phone Brittney Castro HEADHUNTER Primary Care Provider [phone] Encounter Details Date Type Department Care Team (Late st Contact Info) Description 05/07/2014 Results Only [facility] Services - [facility] ([facility] [address] [place], [place] [phone] Hipolito Yang MD [address] [place] [address] [place] [address] Social History Tobacco Use Types Packs/Day Years [...] Procedure Name Priority Date/Time Associated Diagnosis Comments SURGICAL PATHOLOGY Routine 05/07/2014 10 :18 EST documented in this encounter Results * SURGICAL PATHOLOGY (05/07/2014 10:18 EST) Pathology Report: SURGICAL PATHOLOGY REPORT Reports generated via electronic interface contain original data; however they are lacking the format of the original report. Caution should be taken when reading/interpreti ng unformatted reports. Name: ? ROSA JAY ? Accession #: ? [id number] ? : ? 1970 (Age: 43) ??F ? Collect Date: ? 05/07/2014 ? Location: ? [facility] ? Receive Date: ? 05/08/2014 ? Provider: HIPOLITO YANG MD Copy to: JUAN NINO MD ? Final Pathologic Diagnosis: BONE AND SOFT TISSUE, LEFT DISTAL CLAVICLE, RESECTION: - ??Reactive and hyperplastic synovium without significant inflammation. - ??Osteocartilagino us tissue with degenerative changes. See comment. Comment: Sections show histologic features consistent with osteoarthritis, including fissuring and pitting of articular cartilage and reactive synovium with increased subsynovial adipose tissue. Dr. Glez 05/18/2014 10:04 AM Document reviewed and electronically signed by: ISA GLEZ MD Report ??Date: 05/18/2014 10:06 By the signature above, the attending physician certifies that he/she has personally conducted a gross and/or microscopic examination of the described specimens and rendered or confirmed the above diagnosis. 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 Received in formalin labelled with proper patient identification (initials A, C) and left distal clavicle is a piece of bone with a small amount of adherent soft tissue (2.2 x 1.4 x 0.9 cm) as well as multiple fragments of pretty-pink and yellow soft tissue (2.6 x 1.3 x 0.8 cm in aggregate). ??One end of the bone has a pretty-white, focally roughened and granular articular surface. ??The opposite end of the bone has a smooth pretty-brown resection margin. ??The margin is inked blue. ??The cut surface of the bone is pretty-brown and trabecular. ??The soft tissue fragments are fibromembranous, focally thickened and rubbery with no discrete nodules identified. ??Butcher Scullion sections of bone are submitted in 1 for decalcification and medical service representative sections of soft tissue are submitted in 2. Jennachristina Chandler 05/10/2014 10:54 AM End of Report [facility] 05/07/2014 10:1 8 EST 05/08/2014 10:18 EST us Hipolito Yang MD PATHOLOGY ORDERABLES Final Result [facility] [address] [place] [address] documented in this encounter Visit Diagnoses Not on filedocumented in this encounter Care Teams Digital Sales Manager Relationship Specialty Start Date End Date Brittney Castro, [facility] [address] [place] [address] PCP - General 08/15/09 05/10/14 documented as of this encounter
--- OUTSIDE RECORDS SUMMARY | 2024-07-27 13:00 | XMS_ITS | Encounter Summary ---
Author Organization [facility] Address [address] [place] [id number] Care Team Providers Care Chief Deputy Coroner Name Role Phone Brea Nieves MD Primary Care Provider [phone] Encounter Details Date Type Department Care Team (Latest Contact Info) Description 10/25/2016 11:29 EDT - 10/25/2016 23:59 EDT Hospital Encounter [address] [address] Unknown, Provider, MD Discharge Disposition: Home or Self Care Social History Tobacco Use Types Packs/Day Years Used Date Smoking Tobacco: Never Assessed Comments Unknown Sex and Gender Information Value Date Recorded Sex Assigned at Not on file Legal Sex Female 18:31 EST Gender Identity Not on file Sexual Orientation Not on file documented as of this encounter Discharge Disposition Disposition Code Departure Means Destination Home or Self Penitentiary documented in this encounter Plan of Treatment Not on file documented as of this encounter Visit Diagnoses Not on filedocumented in this encounter Care Teams Chief Deputy Coroner Relationship Specialty Start Date End Date Brea Nieves MD PCP - General 05/11/14 documented as of this encounter
--- OUTSIDE RECORDS SUMMARY | 2024-07-27 13:00 | XMS_ITS | Encounter Summary ---
Author Organization [facility] Address [facility] [place] [address] Care Team Providers Care Senior Investment Manager Name Role Phone Beatris Harry MD Primary Care Provider [phone] Encounter Details Date Type Department Care Team (Latest Contact Info) Description 02/01/2014 10:07 AM EDT - 02/01/2014 11:59 PM EDT Hospital Encounter XRay at [address] [place] [id number] CLINIC, Brittney Vega MD Discharge Disposition: Home Social History Tobacco Use Types Packs/Day Years Used Date Smoking Tobacco: Never Assessed Sex and Gender Information Value Date Recorded Sex Assigned at Not on file Gender Identity Not on file Sexual Orientation Not on file documented as of this encounter Procedure Notes * Rafael Borjas MD - 02/01/2014 5:36 PM EDTProcedure(s): ARTHROCENTESIS,DRAIN/INJECT JOINT/BURSA Pre-Procedure Diagnose(s): Left shoulder pain left shoulder Arthrogram For Injection Of Contrast Date: 02/01/2014 History: Pain, schedule for MR arthrogram Technique: After an extensive conversation with the patient regarding risks and benefits, oral and written consents were obtained. The patient was positioned supine on the fluoroscopic table. The skin overlying the left glenohumeral joint was prepped and draped in the usual aseptic manner. 1% Lidocaine was used to achieve local anesthesia. Under fluoroscopic guidance, a 22 gauge spinal needle wasadvanced into the joint space. After confirmation of intra-articular location of needle tip by using a small injection of the contrast mixture, a total of 10 cc of the contrast mixture was injected. Findings: 1) Contrast in left glenohumeral joint space Contrast: 20cc mixture of the following were prepared: Magnevist - .2cc (with resultant Gadolinium concentration of 1:100) Normal Saline - 10cc Omnipaque 300 - Vial size: 10 mL Utilized: 5 mL Discarded: 5 mL 1% Lidocaine - 5cc Only 10 cc of this mixture injected into joint space. Fluoro Time: 14 seconds Complications: None immediate. Post-procedure care: Instructions regarding monitor of infection and management of post-procedural pain were reviewed with the patient. Impression: Uneventful arthrogram Resident/Fellow: none Attending: Rafael Nelson MD was present for and performed the entire procedure. documented in this encounter Plan of Treatment Not on file documented as of this encounter Procedures Procedure Name Priority Date/Time Associated Diagnosis Comments XR FLUORO SHOULDER INJECTION ARTHROGRAM G Routine 02/01/2014 10:53 AM EDT documented in this encounter Results * XR Fluoro shoulder injection arthrogram G (02/01/2014 10:53 AM EDT) Anatomical Region Laterality Modality Shoulder N/A Radiographic Yolanda ging 02/01/2014 10:5 3 AM EDT Impressions 02/02/2014 5:18 PM EDT Impression: Uneventful arthrogram ?? Resident/Fellow: none ? Attending: Rafael Nelson MD was present for and performed the entire procedure. Narrative 02/02/2014 5:18 PM EDT left shoulder Arthrogram For Injection Of Contrast ?? Date: 02/01/2014 ?? History: Pain, schedule for MR arthrogram ?? Technique: After an extensive conversation with the patient regarding risks and benefits, oral and written consents were obtained. The patient was positioned supine on the fluoroscopic table. The skin overlying the left glenohumeral joint was prepped and draped in the usual aseptic manner. 1% Lidocaine was used to achieve local anesthesia. Under fluoroscopic guidance, a 22 gauge spinal needle was advanced into the joint space. After confirmation of intra-articular location of needle tip by using a small injection of the contrast mixture, a total of 10 cc of the contrast mixture was injected. ?? Findings: 1) Contrast in left glenohumeral joint space ?? Contrast: 20cc mixture of the following were prepared: ?? Magnevist - .2cc (with resultant Gadolinium concentration of 1:100) ?? Normal Saline - 10cc ?? Omnipaque 300 - ?? Vial size: 10 mL ?? Utilized: 5 mL ?? Discarded: 5 mL ?? 1% Lidocaine - 5cc ?? Only 10 cc of this mixture injected into joint space. ?? Fluoro Time: 14 seconds ?? Complications: None immediate. ?? Post-procedure care: Instructions regarding monitor of infection and management of post-procedural pain were reviewed with the patient. ?? Procedure Note Rafael Borjas MD - 02/02/2014 left shoulder Arthrogram For Injection Of Contrast Date: 02/01/2014 History: Pain, schedule for MR arthrogram Technique: After an extensive conversation with the patient regardingrisks and benefits, oral and written consents were obtained. The patient waspositioned supine on the fluoroscopic table. The skin overlying the left glenohumeral joint was prepped and draped in the usual aseptic manner. 1% Lidocaine wasused to achieve local anesthesia. Under fluoroscopic guidance, a 22 gaugespinal needle was advanced into the joint space. After confirmation ofintra-articular location of needle tip by using a small injection of the contrast mixture,a total of 10 cc of the contrast mixture was injected. Findings: 1) Contrast in left glenohumeral joint space Contrast: 20cc mixture of the following were prepared: Magnevist - .2cc (with resultant Gadolinium concentration of 1:100) Normal Saline - 10cc Omnipaque 300 - Vial size: 10 mL Utilized: 5 mL Discarded: 5 mL 1% Lidocaine - 5cc Only 10 cc of this mixture injected into joint space. Fluoro Time: 14 seconds Complications: None immediate. Post-procedure care: Instructions regarding monitor of infection andmanagement of post-procedural pain were reviewed with the patient. IMPRESSION Impression: Uneventful arthrogram Resident/Fellow: none Attending: I, Rafael Borjas MD was present for and performed theentire procedure. Brittney Cardozo MD IMG FLUORO ORDERABLE S documented in this encounter Visit Diagnoses Not on filedocumented in this encounter Administered Medications Inactive Administered Medications - up to 3 most recent administrations Medication Order MAR Action Action Date Dose Rate Site sodium chloride 0.9 % 10 mL with lidocaine 10 mg/mL (1 %) 50 mg, iohexol 5 mL, gadopentetate dimeglumine 10 mmol/20 mL (469.01 mg/mL) 0.2 mL injection Intra-articular, ONCE, 1 dose, On 02/01/14 at 1100 Given 02/01/2014 10:42 AM EDT documented in this encounter Care Teams Senior Investment Manager Relationship Specialty Start Date End Date Beatris Harry MD [address] [place] [address] PCP - General 01/26/14 02/11/14 documented as of this encounter
--- OUTSIDE RECORDS SUMMARY | 2024-07-27 13:00 | XMS_ITS | Referral Summary ---
Author Organization [facility] Address [address] [place] [address] Care Team Providers Care Field Service Poultry Technician Name Role Phone Brea Nieves MD Primary Care Provider [phone] Social History Tobacco Use Types Packs/Day Years Used Date Smoking Tobacco: Never Assessed Comments Unknown Sex and Gender Information Value Date Recorded Sex Assigned at Not on file Legal Sex Female 18:31 EST Gender Identity Not on file Sexual Orientation Not on file Plan of Treatment Not on file Insurance [address] [place] [address] BLUE Care Teams Field Service Poultry Technician Relationship Specialty Start Date End Date Brea Nieves MD PCP - General 05/11/14
--- OUTSIDE RECORDS SUMMARY | 2024-07-27 13:00 | XMS_ITS | Encounter Summary ---
Author Organization [facility] Address [address] [place] [address] Care Team Providers Care Mohs Surgeon/General Dermatologist Name Role Phone Ezequiel Brea Cooley MD Primary Care Provider [phone] Encounter Details Date Type Department Care Team (Latest Contact Info) Description 04/26/2023 Lab Requisition [facility]ology & Laboratory Medicine - [facility] [address] [place] [address] Jenna Swenson, DO [address] [place] [address] Personal history of colonic polyps; Family history of other diseases of the digestive system; Noninfective gastroenteritis and colitis, unspecified Social History Tobacco Use Types Packs/Day Years [...] Priority Date/Time Associated Diagnosis Comments SURGICAL PATHOLOGY Today 04/26/2023 9: 23 EDT Personal history of colonic polyps Family history of other diseases of the digestive system Noninfective gastroenteritis and colitis, unspecified documented in this encounter Results * SURGICAL PATHOLOGY (04/26/2023 9:23 EDT) Note to Patient The following pathology results have been interpreted by your pathologist and may be available to you before your health provider has had the opportunity to review them. Please allow time for your provider to receive these results and explore management options, if applicable. 05/06/2023 17:19 [facility] Final Diagnosis A. COLON, POLYP, 90 CM, BIOPSY: - Tubular adenoma. B. ILEOCECAL VALVE, BIOPSY: - Active enteritis. C. TERMINAL ILEUM, BIOPSY: - Enteric mucosa without significant diagnostic abnormality. D. COLON, 80 CM, BIOPSY: - Colonic mucosa without significant diagnostic abnormality. E. COLON, 70 CM, POLYP, BIOPSY: -Tubular adenoma. F. COLON, 60 CM, BIOPSY: - Colonic mucosa without significant diagnostic abnormality. G. COLON, 40 CM, BIOPSY: - Colonic mucosa without significant diagnostic abnormalities. H. RECTUM, BIOPSY: - Colonic mucosa without significant diagnostic abnormalities. 05/06/2023 17:19 [facility] Attestation By the signature below, the attending physician certifies that they have 1) personally conducted a gross and/or microscopic examination of the described specimen(s), and/or personally interpreted the results of laboratory testing of the described specimen(s), and 2) personally rendered or confirmed the above diagnosis. 05/06/2023 17:19 [facility] at 1719 Clinical History Polyps 05/06/2023 17:19 [facility] Gross Description A. Received in formalin labelled with proper patient identification (initials A, C) and 1. Polyp at 90 cm is a single pretty tissue (0.4 x 0.3 x 0.1 cm). Submitted intact in A1. B. Received in formalin labelled with proper patient identification (initials A, C) and 2. Ileocecal valve biopsy is a single pretty-brown tissue (0.3 x 0.2 x 0.1 cm). Submitted intact in B1. C. Received in formalin labelled with proper patient identification (initials A, C) and 3. Terminal ileum are 2 pretty-brown granular tissues (each 0.3 x 0.2 x 0.1 cm). Entirely submitted in C1. D. Received in formalin labelled with proper patient identification (initials A, C) and 4. Biopsy at 80 cm is a single pretty tissue (0.2 x 0.1 x 0.1 cm). Submitted intact in D1. E. Received in formalin labelled with proper patient identification (initials A, C) and 5. Polyp at 70 cm is a single pretty tissue (0.5 x 0.2 x 0.1 cm). Submitted intact in E1. F. Received in formalin labelled with proper patient identification (initials A, C) and 6. Biopsy at 60 cm is a single pretty focally brown tissue (0.4 x 0.2 x 0.1 cm). Submitted intact in F1. G. Received in formalin labelled with proper patient identification (initials A, C) and 7. Biopsy at 40 cm is a single pretty focally brown tissue (0.5 x 0.2 x 0.1 cm). Submitted intact in G1. H. Received in formalin labelled with proper patient identification (initials A, C) and 8. Rectal biopsy is a single pretty focally brown tissue (0.5 x 0.2 x 0.1 cm). Submitted intact in H1. Ghazal Dsouza 04/27/2023 14:47 05/06/2023 17:19 [facility] Performing Lab [facility] 05/06/2023 17:19 [facility] Scanned Images 05/06/2023 17:19 [facility] Tissue SPECIMEN FROM RECTUM / Unknown 04/26/2023 9:23 EDT 04/26/2023 17:24 EDT Tissue specimen (specimen) STRUCTURE OF SMALL INTESTINE / Unknown 04/26/2023 9:23 EDT 04/26/2023 17:24 EDT Tissue specimen (specimen) STRUCTURE OF SMALL INTESTINE / Unknown 04/26/2023 9:23 EDT 04/26/2023 17:24 EDT Tissue specimen (specimen) COLON STRUCTURE / Unknown 04/26/2023 9:23 EDT 04/26/2023 17:24 EDT Tissue specimen (specimen) COLON STRUCTURE / Unknown 04/26/2023 9:23 EDT 04/26/2023 17:24 EDT Tissue specimen (specimen) COLON STRUCTURE / Unknown 04/26/2023 9:23 EDT 04/26/2023 17:24 EDT Tissue specimen (specimen) COLON STRUCTURE / Unknown 04/26/2023 9:23 EDT 04/26/2023 17:24 EDT Tissue specimen (specimen) SPECIMEN FROM RECTUM / Unknown 04/26/2023 9:23 EDT 04/26/2023 17:24 EDT us Jenna Swenson DO PATHOLOGY ORDERABLES Final Re sult [facility] [address] [place] [id number] documented in this encounter Visit Diagnoses Diagnosis Personal history of colonic polyps Family history of other diseases of the digestive system Noninfective gastroenteritis and colitis, unspecified documented in this encounter Care Teams Mohs Surgeon/General Dermatologist Relationship Specialty Start Date End Date Brea Nieves MD PCP - General 05/11/14 documented as of this encounter
--- OUTSIDE RECORDS SUMMARY | 2024-07-27 13:00 | XMS_ITS | Encounter Summary ---
Author Organization [facility] Address [address] [place] [address] Care Team Providers Care Transport Engineer Name Role Phone Brea Nieves MD Primary Care Provider [phone] Encounter Details Date Type Department Care Team (Late st Contact Info) Description 10/25/2016 Results Only [facility] [place] [phone] Judi Paz MD [address] [place] [address],[address] [place] [id number] Social History Tobacco Use Types Packs/Day Years [...] Date/Time Associated Diagnosis Comments SURGICAL PATHOLOGY Routine 10/25/2016 18 :53 EDT documented in this encounter Results * SURGICAL PATHOLOGY (10/25/2016 18:53 EDT) Pathology Report: SURGICAL PATHOLOGY REPORT Reports generated via electronic interface contain original data; however they are lacking the format of the original report. Caution should be taken when reading/interpret ing unformatted reports. Name: ? NEO JAY ? Accession #: ? [id number] ? : ? 1970 (Age: 46) ??F ? Collect Date: ? 10/25/2016 ? Location: ? [facility] ? Receive Date: ? 10/26/2016 ? Provider: JUDI PAZ MD Copy to: RAUDEL VENTURA PA-C ? Final Pathologic Diagnosis: ENDOMETRIUM, BIOPSY: - Inactive endometrium with tubal metaplasia. - Endocervical tissue with microglandular hyperplasia. - No cytologic atypia identified. Document reviewed and electronically signed by: CRISTIAN ROBLERO MD Report ??Date: 10/29/2016 12:39 By the signature above, the attending physician certifies that he/she has personally conducted a gross and/or microscopic examination of the described specimens and rendered or confirmed the above diagnosis. Specimen(s) Received: Endometrial biopsy Clinical History: Abnormal uterine bleeding, s/p ablation Gross Description: ? Received in formalin labelled with proper patient identification (initials A, C) and endometrial tissue is an aggregate of pretty-brown slightly mucoid tissue (0.9 x 0.7 x 0.4 cm). Submitted in toto in 1. Dr. Soto 10/27/2016 8:50 AM End of Report [facility] 10/25/2016 18:5 3 EDT 10/26/2016 18:53 EDT us Judi Paz MD PATHOLOGY ORDERABLES Final Res ult [facility] [address] [place] [address] documented in this encounter Visit Diagnoses Not on filedocumented in this encounter Care Teams Transport Engineer Relationship Specialty Start Date End Date Brea Nieves MD PCP - General 05/11/14 documented as of this encounter
--- OUTSIDE RECORDS SUMMARY | 2024-07-27 13:00 | XMS_ITS | Encounter Summary ---
Author Organization [facility] [place] [address] Care Team Providers Care County Administrator Name Role Phone Beatris Harry MD Primary Care Provider [phone] Encounter Details Date Type Department Care Team (Late st Contact Info) Description 02/01/2014 10:50 AM EDT - 02/01/2014 11:59 PM EDT Hospital Encounter MRI at [facility] [place] [address] Social History Tobacco Use Types Packs/Day Years Used Date Smoking Tobacco: Never Assessed Sex and Gender Information Value Date Recorded Sex Assigned at Not on file Gender Identity Not on file Sexual Orientation Not on file documented as of this encounter Miscellaneous Notes * Miscellaneous - Provider, Scanning - 02/11/2014 11:25 AM EDT documented in this encounter Plan of Treatment Not on file documented as of this encounter Procedures Procedure Name Priority Date/Time Associated Diagnosis Comments MRI SHOULDER WITH CONTRAST Routine 02/01/2014 11:45 AM EDT documented in this encounter Results * MRI shoulder with contrast (02/01/2014 11:45 AM EDT) Anatomical Region Laterality Modality Shoulder Magnetic Resonan ce 02/01/2014 11:4 5 AM EDT Narrative 02/01/2014 2:06 PM EDT Examination MRI SHOULDER WITH GD+/LEFT Clinical History LEFT SHOULDER TENDONOPATHY AND PAIN. ?? PREVIOUS MRI SHOWS POSSIBLE LABRAL TEAR. Comparison None. Technique MR arthrogram of the left shoulder was performed following the intraarticular administration of contrast into the left glenohumeral joint space. ??Please see fluoroscopic guided injection report for details of contrast administration. Findings Acromioclavicular joint: ??Acromioclavicular arthropathy is characterized by capsular hypertrophy with marginal osteophyte formation and subchondral cystic change. ??Subacromial spur formation is also noted on series 4-12 and 13. ??No os acromiale. ??There is a small amount of fluid in the subacromial subdeltoid bursa. Rotator cuff: ??No extravasated intraarticular contrast is seen to suggest full thickness rotator cuff tear. There is thickening intermediate signal intensity throughout the rotator cuff compatible with underlying tendinopathy. Superimposed high-grade partial thickness bursal sided tear of the rotator cuff which originates at the cuff interval extends posteriorly approximately 1.4 cm involving up to 80-90 percent of the cuff thickness and is accompanied by intra substance extension of the tear more posteriorly into the anterior infraspinatus tendon fibers at the articular footprint. Developing intratendinous cyst formation along the anterior infraspinatus toward the myotendinous junction as well on series 4-17 and series 3-13. Mild intrasubstance tearing of the mid infraspinatus tendon fibers with fluid signal intensity dissecting proximally toward the myotendinous junction on coronal image 10. ??This is similar minimal intrasubstance tearing of the upper most subscapularis tendon fibers on coronal image 26. Mild fatty infiltration of myotendinous junction of the infraspinatus muscle. ??No additional rotator cuff muscular atrophy. ??There is nonspecific intramuscular edema within the lower margin of the teres minor muscle on coronal image 9, nonspecific. Biceps tendon: ??Normally located. ??There is fusiform enlargement abnormal intermediate intrasubstance signal intensity within the intraarticular segment tendon most pronounced toward the groove entrance compatible underlying tendinopathy on coronal image 25. Labrum: ??There is complex tearing of the superior labrum extending into the posterior superior and posterior aspect the labrum to just below the level the equator characterized by the presence of abnormal accumulation of intrasubstance contrast and blunting of the diminutive free edge of the posterior superior labrum. ??No paralabral cyst detected. ??Remaining portion of the labrum appears to be intact. Articular cartilage: ??No focal chondral defect is seen. Bones: ??No fracture suspicious marrow signal abnormalities identified. ??No intraarticular bodies appreciated. Nerves: ??No mass is identified within the quadrilateral space or along the course of the suprascapular nerve. Impression ? 1. SLAP tear of the labrum, as described. ? 2. Rotator cuff tendinopathy with superimposed high-grade partial thickness bursal sided tear of the rotator cuff extending posteriorly from the cuff interval 1.4 cm. ? 3. Findings compatible with pronounced tendinopathy long head of biceps tendon at the groove entrance. ? 4. Acromioclavicular arthropathy with small subacromial spurs. ? 5. Focal mild intramuscular edema in the inferior aspect of the teres minor muscle, nonspecific and may represent a focal muscular injury in the appropriate clinical setting. Procedure Note Rafael Borjas MD - 02/01/2014 Examination MRI SHOULDER WITH GD+/LEFT Clinical History LEFT SHOULDER TENDONOPATHY AND PAIN. PREVIOUS MRI SHOWS POSSIBLE LABRAL TEAR. Comparison None. Technique MR arthrogram of the left shoulder was performed following theintraarticular administration of contrast into the left glenohumeral joint space. Pleasesee fluoroscopic guided injection report for details of contrastadministration. Findings Acromioclavicular joint: Acromioclavicular arthropathy is characterizedby capsular hypertrophy with marginal osteophyte formation and subchondralcystic change. Subacromial spur formation is also noted on series 4-12 and 13.No os acromiale. There is a small amount of fluid in the subacromial subdeltoid bursa. Rotator cuff: No extravasated intraarticular contrast is seen to suggestfull thickness rotator cuff tear. There is thickening intermediate signalintensity throughout the rotator cuff compatible with underlying tendinopathy. Superimposed high-grade partial thickness bursal sided tear of the rotatorcuff which originates at the cuff interval extends posteriorly approximately1.4 cm involving up to 80-90 percent of the cuff thickness and is accompanied byintra substance extension of the tear more posteriorly into the anterior infraspinatus tendon fibers at the articular footprint. Developing intratendinous cyst formation along the anterior infraspinatus toward the myotendinous junction as well on series 4-17 and series 3-13. Mild intrasubstance tearing of the mid infraspinatus tendon fibers with fluidsignal intensity dissecting proximally toward the myotendinous junction oncoronal image 10. This is similar minimal intrasubstance tearing of the uppermost subscapularis tendon fibers on coronal image 26. Mild fatty infiltrationof myotendinous junction of the infraspinatus muscle. No additional rotatorcuff muscular atrophy. There is nonspecific intramuscular edema within thelower margin of the teres minor muscle on coronal image 9, nonspecific. Biceps tendon: Normally located. There is fusiform enlargement abnormal intermediate intrasubstance signal intensity within the intraarticularsegment tendon most pronounced toward the groove entrance compatible underlying tendinopathy on coronal image 25. Labrum: There is complex tearing of the superior labrum extending intothe posterior superior and posterior aspect the labrum to just below the levelthe equator characterized by the presence of abnormal accumulation of intrasubstance contrast and blunting of the diminutive free edge of the posterior superior labrum. No paralabral cyst detected. Remainingportion of the labrum appears to be intact. Articular cartilage: No focal chondral defect is seen. Bones: No fracture suspicious marrow signal abnormalities identified. No intraarticular bodies appreciated. Nerves: No mass is identified within the quadrilateral space or along the course of the suprascapular nerve. Impression 1. SLAP tear of the labrum, as described. 2. Rotator cuff tendinopathy with superimposed high-grade partial thickness bursal sided tear of the rotator cuff extending posteriorly fromthe cuff interval 1.4 cm. 3. Findings compatible with pronounced tendinopathy long head ofbiceps tendon at the groove entrance. 4. Acromioclavicular arthropathy with small subacromial spurs. 5. Focal mild intramuscular edema in the inferior aspect of the teres minor muscle, nonspecific and may represent a focal muscular injury in the appropriate clinical setting. Brittney Cardozo MD IMG MRI ORDERABLES documented in this encounter Visit Diagnoses Not on filedocumented in this encounter Care Teams County Administrator Relationship Specialty Start Date End Date Beatris Harry MD [address] [place] [address] PCP - General 01/26/14 02/11/14 documented as of this encounter
--- OUTSIDE RECORDS SUMMARY | 2024-07-27 13:00 | XMS_ITS | Encounter Summary ---
Author Organization [facility] Address [address] [place] [address] Care Team Providers Care Mailroom Supervisor Name Role Phone Brittney Castro INDUSTRIAL PROPERTY APPRAISER Primary Care Provider [phone] Encounter Details Date Type Department Care Team (Latest Contact Info) Description 05/07/2014 16:54 EST - 05/07/2014 23:59 EST Hospital Encounter [address] [address] Unknown, Provider, MD Discharge Disposition: Home or [...] Code Departure Means Destination Home or Self Mcfp documented in this encounter Plan of Treatment Not on file documented as of this encounter Visit Diagnoses Not on filedocumented in this encounter Care Teams Mailroom Supervisor Relationship Specialty Start Date End Date Brittney Castro NP [facility] [address] [place] [address] PCP - General 08/15/09 05/10/14 documented as of this encounter
--- OUTSIDE RECORDS SUMMARY | 2024-07-27 13:00 | XMS_ITS | Encounter Summary ---
Author Organization [facility] Address [address] [place] [address] Care Team Providers Care Construction Recruiter Name Role Phone Brea Nieves MD Primary Care Provider [phone] Encounter Details Date Type Department Care Team (Latest Contact Info) Description 12/13/2016 9:43 EDT - 12/13/2016 23:59 EDT Hospital Encounter [address] [address] Unknown, Provider, MD Discharge Disposition: Home or [...] Code Departure Means Destination Home or Self Custodial documented in this encounter Plan of Treatment Not on file documented as of this encounter Visit Diagnoses Not on filedocumented in this encounter Care Teams Construction Recruiter Relationship Specialty Start Date End Date Brea Nieves MD PCP - General 05/11/14 documented as of this encounter
--- OUTSIDE RECORDS SUMMARY | 2024-07-27 13:00 | XMS_ITS | Encounter Summary ---
Author Organization [facility] Address [address] [place] [address] Care Team Providers Care Canned Food Reconditioning Inspector Name Role Phone Brea Nieves MD Primary Care Provider [phone] Encounter Details Date Type Department Care Team (Late st Contact Info) Description 12/13/2016 Results Only [facility] [phone] Judi Paz MD [address] [place] [address],[address] [place], [place] [id number] Social History Tobacco Use Types Packs/Day Years [...] Date/Time Associated Diagnosis Comments SURGICAL PATHOLOGY Routine 12/13/2016 13 :11 EDT documented in this encounter Results * SURGICAL PATHOLOGY (12/13/2016 13:11 EDT) Pathology Report: SURGICAL PATHOLOGY REPORT Reports generated via electronic interface contain original data; however they are lacking the format of the original report. Caution should be taken when reading/interpreti ng unformatted reports. Name: ? NOE JAY ? Accession #: ? [id number] ? : ? 1970 (Age: 46) ??F ? Collect Date: ? 12/13/2016 ? Location: ? [facility] ? Receive Date: ? 12/14/2016 ? Provider: JUDI PAZ MD Copy to: RAUDEL VENTURA PA-C ? Final Pathologic Diagnosis: A. UTERUS, CERVIX AND LEFT FALLOPIAN TUBE, HYSTERECTOMY AND LEFT SALPINGECTOMY: - Cervix: ?? - No specific histopathologic features. - Endometrium: ?- Weakly proliferative endometrium. - Myometrium: ?? - Leiomyomata, intramural. ?? - Adenomyosis. - Fallopian tube, left: ?? - Adenofibroma. B. FALLOPIAN TUBE, RIGHT, SALPINGECTOMY: - Benign fallopian tube with cystic Walthard nests. Comment: Specimen (A6) (left fallopian tube) is presented and reviewed at the intradepartmental consultation conference for confirmation of adenofibroma. Dr. Paul 12/18/2016 5:51 AM Document reviewed and electronically signed by: Hunter Paul MD Report ??Date: 12/18/2016 17:56 By the signature above, the attending physician certifies that he/she has personally conducted a gross and/or microscopic examination of the described specimens and rendered or confirmed the above diagnosis. Specimen(s) Received: A. ??Uterus and left tube (separate) B. ??Right tube Clinical History: Abnormal uterine bleeding Gross Description: A. ?Received in formalin labelled with proper patient identification (initials A, C) and uterus, L tube (separate) is an intact uterus and cervix (155 g, 11.2 cm cervix to fundus 7.5 cm cornu to cornu x 5.8 cm anterior to posterior). Within the container is a detached fallopian tube (4.2 cm in length x 0.5 cm diameter). ? The uterine serosa is pretty-pink and dull with surgical defects on the anterior aspect. The ectocervix is pretty-pink to diffusely purple with a patent slit-like os. The endocervix is pretty-pink and rubbery with a slightly distorted herringbone pattern. Within the endometrial cavity is a pretty-white semi-firm fibrotic focus (1.5 x 0.5 x 0.3 cm). The average endometrial thickness is 0.2 cm. The myometrium is pretty-pink and trabeculated with an intramural whorled nodule (0.5 x 0.5 x 0.5 cm), free of hemorrhage or necrosis. The fallopian tube serosa is tripp-purple and hyperemic with a loosely attached white rubbery ovoid clip. Cut surfaces of the fallopian tube show unremarkable pinpoint lumen. Spaghetti Machine Operator sections are submitted as follows: BLOCK BARDALES A1- ??anterior cervix A2- ??anterior endomyometrium A3- ??posterior cervix A4- ??posterior endomyometrium A5- ??whorled nodule A6- ??fimbria, bisected A7- ??fallopian tube B. ?Received in formalin labelled with proper patient identification (initials A, C) and R tube is a fimbriated fallopian tube (3.5 cm in length x 0.5 cm in diameter). The serosa is tripp-purple and hyperemic. Cut surfaces reveal an unremarkable pinpoint lumen. The fimbria is longitudinally bisected and submitted in B1 and two event representative cross sections are submitted in B2. TYREE Greco (ASCP) 12/14/2016 3:10 PM End of Report [facility] 12/13/2016 13:1 1 EDT 12/14/2016 13:11 EDT us Judi Paz MD PATHOLOGY ORDERABLES Final Res ult [facility] [address] [place] [address] documented in this encounter Visit Diagnoses Not on filedocumented in this encounter Care Teams Canned Food Reconditioning Inspector Relationship Specialty Start Date End Date Brea Nieves MD PCP - General 05/11/14 documented as of this encounter
--- OUTSIDE RECORDS SUMMARY | 2024-07-27 13:01 | XMS_ITS | Encounter Summary ---
Author Organization [facility] Address [address] [place] [address] Care Team Providers Care Bioinformatics Software Engineer Name Role Phone Unavailable Primary Care Provider Unavailabl e Encounter Details Date Type Department Care Team (Late st Contact Info) Description 08/11/2009 Orders Only [facility] - [facility] ([facility] [address] [place], [place] [id number] Shanelle Herrera MD [address] [place] [address] [place] [address] Social History Tobacco Use Types Packs/Day Years [...] Date/Time Associated Diagnosis Comments SURGICAL PATHOLOGY Routine 08/11/2009 0:00 EST documented in this encounter Results * SURGICAL PATHOLOGY (08/11/2009 0:00 EST) Pathology Report: SURGICAL PATHOLOGY REPORT ? Reports generated via electronic interface contain original data; ? however they are lacking the format of the original report. ? Caution should be taken when reading/interpreti ng unformatted reports. ? Name: ? PIERRE, NEO ? Accession #: ? [id number] ? : ? 1970 (Age: 38) ??F ? Collect Date: ? 08/11/2009 ? Location: ? [facility] ? Receive Date: ? 08/11/2009 ? Provider: SHANELLE TOSHIA MD ? Copy to: MELIA BRADLEY DIMENSIONAL ENGINEER ? Final Pathologic Diagnosis: ? Endometrium, curettage: ? 1. ?Benign proliferative endometrium. ? 2. ? Scant fragments of benign squamous and endocervical mucosa. ? Document reviewed and electronically signed by: ? John Arreguin MD ? Report ??Date: 08/16/2009 16:15 ? By the signature above, the attending physician certifies that he/she has ? personally conducted a gross and/or microscopic examination of the described ? specimens and rendered or confirmed the above diagnosis. ? Specimen(s) Received: ? Endometrial curettings ? Clinical History: ? Menorrhagia ? Gross Description: ? Received in formalin labelled Pierre, Neo and endometrial ? curettings is a 2.5 x 2.0 x 0.5 cm aggregate of multiple pretty and pretty-brown, ? focally hemorrhagic, soft to slightly firm pieces of tissue admixed with a small amount of clear, pretty tinged mucinous material. ??The specimen is submitted ? entirely as (A1) and (A2). ??(Doyle Valadez)/inga ? End of Report ? [facility] 08/11/2009 08/11/2009 16: 22 EST us Shanelle Herrera MD PATHOLOGY ORDERABLES Final Resu lt [facility] [address] [place] [address] documented in this encounter Visit Diagnoses Not on filedocumented in this encounter
--- OUTSIDE RECORDS SUMMARY | 2024-07-27 13:01 | XMS_ITS | Encounter Summary ---
Author Organization [facility] Address [address] [place] [address] Care Team Providers Care Landscape Architect And Planner Name Role Phone Brittney Bradley BENDING MACHINE OPERATOR Primary Care Provider [phone] Encounter Details Date Type Department Care Team (Late st Contact Info) Description 09/12/2005 Results Only [facility] conversion [address] [place] [address] Brittney Bradley, BENDING MACHINE OPERATOR [facility] [address] [place] [address] Social History Tobacco Use Types Packs/Day Years [...] Procedure Name Priority Date/Time Associated Diagnosis Comments CYTOPATHOLOGY Routine 09/12/2005 0:00 EST documented in this encounter Results * CYTOPATHOLOGY (09/12/2005 0:00 EST) Pathology Report: CYTOPATHOLOGY REPORT Reports generated via electronic interface contain original data; however they are lacking the format of the original report. Caution should be taken when reading/interpreti ng unformatted reports. Name: ? ROSA JAY ? Accession #: ? [id number] : ? 1970 (Age: 34) ??F ?Collect Date: ? 09/12/2005 Location: ? [facility] ? Receive Date: ? 09/14/2005 Provider: ?BRITTNEY BRADLEY BENDING MACHINE OPERATOR Copy to: ? Specimen/Source: ?ThinPrep Pap Test, Cervix/Endocervix, processed on [employer]Prep Imaging System, with manual evaluation Last Menstrual Period: ? 09/01/05 ? SPECIMEN ADEQUACY ? Satisfactory for Evaluation - transformation zone component present GENERAL CATEGORIZATION ? Negative for Intraepithelial Lesion or Malignancy ? Document reviewed and electronically signed by: ? KERRIE Brown(ASCP) ? Report Date: ??09/17/2005 13:39 End of Report [facility] 09/12/2005 09/14/2005 us Brittney Bradley BENDING MACHINE OPERATOR PATHOLOGY ORDERABLES Final Resu lt Performing Organization Address City/State/[facility] Co de Phone Number [facility] [address] [place] [address] documented in this encounter Visit Diagnoses Not on filedocumented in this encounter Care Teams Landscape Architect And Planner Relationship Specialty Start Date End Date Brittney Bradley BENDING MACHINE OPERATOR [facility] [address] [place] [address] PCP - General 08/15/09 05/10/14 documented as of this encounter
--- OUTSIDE RECORDS SUMMARY | 2024-07-27 13:01 | XMS_ITS | Encounter Summary ---
Author Organization [facility] Address [address] [place] [address] Care Team Providers Care Cold Header Operator Name Role Phone Unavailable Primary Care Provider Unavailabl e Encounter Details Date Type Department Care Team (Late st Contact Info) Description 07/08/2009 Orders Only [facility] Laboratory Services - [facility] [address] [place], [place] [address] Beatris Harry MD [address] [place], [place] [id number] Social History Tobacco Use Types Packs/Day Years [...] Priority Date/Time Associated Diagnosis Comments CYTOPATHOLOGY Routine 07/08/2009 0:00 EST documented in this encounter Results * CYTOPATHOLOGY (07/08/2009 0:00 EST) Pathology Report: CYTOPATHOLOGY REPORT ? Reports generated via electronic interface contain original data; ? however they are lacking the format of the original report. ? Caution should be taken when reading/interpreti ng unformatted reports. ? Name: ? NEO JAY ? Accession #: ? [id number] ? : ? 1970 (Age: 38) ??F ?Collect Date: ? 07/08/2009 ? Location: ? [facility] ? Receive Date: ? 07/11/2009 ? Provider: ?BEATRIS HARRY MD ? Copy to: ? Specimen/Source: ?Pap Test, Cervix/Endocervix, ThinPrep Imaging System ? with manual evaluation ? Last Menstrual Period: ? 1/4/10 ? SPECIMEN ADEQUACY ? Satisfactory for Evaluation ? - transformation zone component present ? GENERAL CATEGORIZATION ? Negative for Intraepithelial Lesion or Malignancy ? Document reviewed and electronically signed by: ? Derrick Cordova, [place](ASCP) ? Report Date: ??07/12/2009 10:37 ? End of Report ? [facility] 07/08/2009 07/11/2009 us Beatris Harry MD PATHOLOGY ORDERABLES Final Resu lt Performing Organization Address City/State/[facility] Co de Phone Number [facility] [address] [place] [address] documented in this encounter Visit Diagnoses Not on filedocumented in this encounter
--- OUTSIDE RECORDS SUMMARY | 2024-07-27 13:01 | XMS_ITS | Encounter Summary ---
Author Organization [facility] Address [address] [place] [address] Care Team Providers Care Regulatory Leader Name Role Phone Brittney Castro FUGITIVE DETECTIVE Primary Care Provider [phone] Encounter Details Date Type Department Care Team (Late st Contact Info) Description 09/24/2012 Results Only [facility] [phone] Iona Moncada, DO [address] [place] [address] Social History Tobacco Use Types Packs/Day Years [...] Date/Time Associated Diagnosis Comments SURGICAL PATHOLOGY Routine 09/24/2012 21 :23 EDT documented in this encounter Results * SURGICAL PATHOLOGY (09/24/2012 21:23 EDT) Pathology Report: SURGICAL PATHOLOGY REPORT Reports generated via electronic interface contain original data; however they are lacking the format of the original report. Caution should be taken when reading/interpreti ng unformatted reports. Name: ? ROSA JAY ? Accession #: ? [id number] ? : ? 1970 (Age: 41) ??F ? Collect Date: ? 09/24/2012 ? Location: ? [facility] ? Receive Date: ? 09/24/2012 ? Provider: IONA MONCADA DO Copy to: JUAN NINO MD ? Final Pathologic Diagnosis: ? Gallbladder, cholecystectomy: 1. ?Cholesterolosis. 2. ? Diverticulum (1.4 cm diameter). 3. ? One benign reactive lymph node. Document reviewed and electronically signed by: Hunter Paul MD Report ??Date: 09/28/2012 12:49 By the signature above, the attending physician certifies that he/she has personally conducted a gross and/or microscopic examination of the described specimens and rendered or confirmed the above diagnosis. Specimen(s) Received: ? Gallbladder Clinical History: ? RUQ abdominal pain; clinical diagnosis code: ??574.2 Gross Description: ? Received in formalin labelled Rosa Jay and gallbladder is a 6.0 x 2.6 x 1.7 cm partially incised gallbladder with a cystic duct measuring 0.9 cm in length and 0.2 cm in diameter. ??The cystic duct margin is inked black. ??The serosa is pink-pretty and focally purple and smooth. ??The mucosa is green, pink and velvety with diffuse yellow stippling. ??There is a diverticulum at the fundus with a diameter of 1.4 cm that communicates with the lumen of the body of the gallbladder through an opening measuring 0.5 cm in diameter. ??The wall thickness ranges from 0.1 cm to 0.5 cm. ??Adjacent to the cystic duct is a 0.7 x 0.5 x 0.4 cm pretty-red lymph node. ??There are no choleliths present. ??Two community service representative sections of gallbladder, the cystic duct margin en face and the cystic duct lymph node are submitted in cassette (1). (Andrea Gomez)/mpl End of Report [facility] 09/24/2012 21:2 3 EDT 09/24/2012 21:23 EDT us Iona Moncada DO PATHOLOGY ORDERABLES Final Res ult Performing Organization Address City/State/[facility] Co de Phone Number [facility] [address] [place] [address] documented in this encounter Visit Diagnoses Not on filedocumented in this encounter Care Teams Regulatory Leader Relationship Specialty Start Date End Date Brittney Castro NP [facility] [address] [place], [place] [address] PCP - General 08/15/09 05/10/14 documented as of this encounter
--- OUTSIDE RECORDS SUMMARY | 2024-07-27 13:01 | XMS_ITS | Encounter Summary ---
Author Organization [facility] Address [address] [place] [address] Care Team Providers Care Can Technician Name Role Phone Brittney Castro GENERATION TECHNICIAN Primary Care Provider [phone] Encounter Details Date Type Department Care Team (Late st Contact Info) Description 09/17/2002 Results Only [facility] [place] conversion [address] [place] [address] Cathleen Lake, [facility] [address] [place] [address] [place] [address] Social History Tobacco Use Types [...] Priority Date/Time Associated Diagnosis Comments CYTOPATHOLOGY Routine 09/17/2002 0:00 EST documented in this encounter Results * CYTOPATHOLOGY (09/17/2002 0:00 EST) Pathology Report: CYTOPATHOLOGY REPORT Reports generated via electronic interface contain original data; however they are lacking the format of the original report. Caution should be taken when reading/interpreti ng unformatted reports. Name: ? ROSA JAY ? Accession #: ? [id number] : ? 1970 (Age: 31) ??F ?Collect Date: ? 09/17/2002 Location: ? [facility] ? Receive Date: ? 09/21/2002 Provider: ?CATHLEEN LAKE [employer] K[employer]EN MANAGER Copy to: ? Specimen/Source: ?ThinPrep Pap Test, Cervix/Endocervix Last Menstrual Period: ? 09/11/02 ? SPECIMEN ADEQUACY ? Satisfactory for Evaluation - transformation zone component present GENERAL CATEGORIZATION ? Negative for Intraepithelial Lesion or Malignancy ? Document reviewed and electronically signed by: ? Tita Porras, CT(ASCP)(IAC) ? Report Date: ??09/23/2002 16:27 End of Report [facility] 09/17/2002 09/21/2002 us Cathleen Lake RESTAURANT KITCHEN MANAGER PATHOLOGY ORDERABLES Final R esult [facility] [address] [place] [address] documented in this encounter Visit Diagnoses Not on filedocumented in this encounter Care Teams Can Technician Relationship Specialty Start Date End Date Brittney Castro NP [facility] [address] [place] [address] PCP - General 08/15/09 05/10/14 documented as of this encounter
--- NOTE | 2024-07-27 14:01 | PDOC.MHCN ---
Date of service: 07/27/24 Time of Service: 10:45 PHQ-9 Over the last 2 weeks, how often have you been bothered by any of the following problems? 1. Little interest or pleasure in doing things: several days 2. Feeling down, depressed, or hopeless: several days 3. Trouble falling or staying asleep, or sleeping too much: several days 4. Feeling tired or having little energy: not at all 6. Feeling bad about yourself - or that you are a failure or have let yourself and your family down: not at all 7. Trouble concentrating on things, such as reading the newspaper or watching television: not at all 8. Moving or speaking so slowly that other people could have noticed? - Or the opposite - being so fidgety or restless that you have been moving around a lot more than usual: not at all 9. Thoughts that you would be better off or of hurting yourself in some way: not at all Source: Developed by Drs. Jony Child, Joanne Ybarra, Feng Ching and colleagues, with an educational mercedes from [employer]. Suicide Severity Rate CSSRS Have you wished you were or wished you could go to sleep and not wake up?: No Have you actually had any thoughts of killing yourself?: Yes CSSRS2 Have you been thinking about how you might do this?: No Have you had these thoughts and had some intention of acting on them?: No Have you started to work out or worked out the details of how to kill yourself? Do you intend to carry out this plan?: No CSSRS3 Have you ever done anything, started to do anything or prepared to do anything to end your life?: Yes CSSRS4 Was this within the past three months?: Yes Screening Score Total Score: 6 Screening: Positive Mental Health Emergency Note Release [facility] release signed:: Yes Reason for Visit Took several trazadone to drowned out the way she was feeling mentally In the last 2 weeks has the pt presented for ES prior to today?: No Client Information Client is: Adult Outpatient Well Housed: Yes Non Suicidal Self Injury Current: No History: yes, one time due to family struggles Risk: Does risk to harm exist?: yes. Risk: Low Risk Duty to warn indicated: No Asssessment/Mental Status Appearance: Other Attitude: Cooperative and Friendly Behavior: Unremarkable Speech: Normal Affect: Cogruent with mood Mood: Sad and Anxious Thought process: Circumstational Hallucinations: No Delusions: No Attention: Unremarkable Perception: Not impaired Orientation: Fully orientated Memory: Intact Insight: Fair Judgement: Fair Neurovegetative Symptoms Sleep: Decrease Appetitie: Decrease Interests: No change Energy: No change Libido: Not applicable Substance Use: Other Drug Issues: Other Do you use nicotine?: No Have you used substances in the last 7 days?: No Additional Issues: Assaultive/Threatening Behavior: No Medical Concerns: No Client engaged in active self harm w/weapon: No Threatening to run away: No Child reported abuse/neglect: No Voluntarily presenting for services: Yes Domestic violence is a concern: No Extreme Psychosis or extreme behavior is present: No Impression Client is having family and significant other issues which has caused her to become dysregulated mentally and requiring care Resources Reosurces reviewed and given:: 988 and Other Plan/Disposition Recommended Disposition: Therapy. Plan: Safety Planned home with follow up this and referral for therapy weekly Person reported agreement to plan: Yes Reports/communication Outcome discussed with: ED/Personnel
[2024-08-06 18:27] LABS: Trazodone (Desyrel) 2466 ng/mL (800 - 1600)
== END 2024-07-27 14:29 | disposition home or self-care (01) ==
LOC: ER 07-27 12:55
PROVIDERS: Student in an Organized Health Care Education/Training Program; Emergency Provider Emergency Medicine; PCP Physician Assistant Medical
DX: T50.902A Poisoning by unspecified drugs, medicaments and biological substances, intentional self-harm, initial encounter (principal); Z60.8 Other problems related to social environment
CPT/HCPCS: 00123; 80053; 80307; 82805; 93005; 96127; 99285; 80299; 80320; 80329; 83605; 83735; 85025; 93010